=== PATIENT | male | born 1960 | race Caucasian/White ===

== ENCOUNTER 2018-03-31 22:33 | Observation (INO) | payer OTHER, SELFPAY ==
[2018-03-31 22:34] VITALS: BP 195/111; PULSE 68; RESP 15; TEMP 36.6; O2SAT 98; BMI 25.7
[2018-03-31 22:39] VITALS: PULSE 59; RESP 22; O2SAT 95
[2018-03-31] MEDS: Aspirin 81 MG TAB.CHEW 324 MG PO (23:02)
[2018-03-31] MEDS: 0.9% Normal Saline 1,000 ML 150 ML IV (23:02)
[2018-03-31 23:17] LABS: Anion Gap 7 (5-15); BUN 14 mg/dL (7-18); BUN/Creat Ratio 11.6 RATIO (10-20); Calcium,Total 9.8 mg/dL (8.5-10.1); Chloride 103 mmol/L (98-107); Creatinine, Serum 1.21 mg/dL (0.70-1.30); EST Glomerular Filtration Rate 65 mL/min (>60); Est Glom Filt Rate - Afr Amer 79 mL/min (>60); Estimated Creatinine Clearance 73.04 ml/min; Glucose 105 mg/dL (74-106); Potassium 3.8 mmol/L (3.5-5.1); Sodium Level 139 mmol/L (136-145)
[2018-03-31 23:19] LABS: D-Dimer Quantitative (DVT/PE) < 0.27 FEU/ug/m (0.27-0.49)
[2018-03-31 23:20] LABS: Absolute Lymphocyte Count 2.04 X10^3/ul (0.83-4.51); Absolute Neutrophil Count 2.7 X10^3/uL (2.0-7.7); Basophil# 0.07 X10^3/uL; Basophil% 1.2 % (0-1); Eosinophil# 0.13 X10^3/uL; Eosinophils% 2.3 % (0-5); Hematocrit 45.2 % (40-54); Lymphocyte # 2.04 X10^3/ul (4.0); Mean Corp Hgb Conc 33.2 g/gl (32-36); Mean Corpuscular Hgb 31.8 pg (27.0-32.0); Mean Corpuscular Volume 95.8 fL (80-94); Mean Platelet Vol. 10.1 fl (6.2-12.0); Monocyte% 12.3 % (0-10); Neutrophil # 2.73 X10^3/uL (2.7-7.7); Neutrophil % 48.2 % (47-70); Platelet Count 227 K/mm3 (150-450); RBC Distribution Width SD 51.5 fl (35.1-43.9); Red Blood Count 4.72 M/mm3 (4.6-6.2); White Blood Count 5.7 K/mm3 (4.4-11.0)
[2018-03-31 23:21] LABS: POSITIVE COUNT NO; POSITIVE DIFFERENTIAL NO; POSITIVE MORPHOLOGY NO
[2018-03-31 23:23] VITALS: BP 146/76; PULSE 69; RESP 18; O2SAT 96
--- NOTE | 2018-03-31 23:38 | ED.VISSUMM ---
- ER Visit Summary Date of Service: 03/31/18 Chief Complaint: Chest pain History of Present Illness: The patient is a 57 M reports onset of left lower chest pain around 6 PM this evening. He describes a throbbing like sensation. He does report nausea and diaphoresis. He states he is short of breath but no worse than normal. History significant for COPD, reflux disease, back pain. Patient denies prior cardiac evaluation. His father had bypass surgery when he was in his 70s. No DVT risk factors. Physical Examination: Vital signs include a blood pressure of 195/111 on arrival, otherwise normal. Patient sitting upright in bed no acute distress. Head neck examination is unremarkable. Heart is regular rate and rhythm. Lung sounds are clear other than mild expiratory wheeze in the left base. There is no chest wall tenderness. Abdomen is soft nontender. Lower external examination was no calf tenderness or edema. Test Results: EKG is sinus at 61 with no sign of acute ischemia. Portable chest x-ray unremarkable. CBC and chemistry studies are normal. Troponin is negative. D-dimer is negative. Emergency Department Course and Treatment: Patient was given aspirin on arrival. He rates his pain as a 1 out of 10 and did not want anything further for pain. On repeat evaluation blood pressure is 159/88 with a heart rate of 73. Patient continues to write only very minimal pain at this time. I recommended hospitalization for cycling of cardiac enzymes and potential stress test. Hospitalist is on page at this time. Treatment Plan: [] Disposition: Admit to observation Impression: Chest pain This note was generated with [employer] dictation software. It may contain incorrect words, spelling, and punctuation that were not noted in review of the chart prior to signing ED Disposition - Plan for ED Patient: Chief Complaint: Chest Pain Referrals: Israel Reed MD [Primary Care Provider] -
--- NOTE | 2018-03-31 23:41 | ED.DCSUM_ITS ---
- ER Visit Summary Date of Service: 03/31/18 Chief Complaint: Chest pain History of Present Illness: The patient is a 57 M reports onset of left lower chest pain around 6 PM this evening. He describes a throbbing like sensation. He does report nausea and diaphoresis. He states he is short of breath but no worse than normal. History significant for COPD, reflux disease, back pain. Patient denies prior cardiac evaluation. His father had bypass surgery when he was in his 70s. No DVT risk factors. Physical Examination: Vital signs include a blood pressure of 195/111 on arrival , otherwise normal. Patient sitting upright in bed no acute distress. Head neck examination is unremarkable. Heart is regular rate and rhythm. Lung sounds are clear other than mild expiratory wheeze in the left base. There is no chest wall tenderness. Abdomen is soft nontender. Lower external examination was no calf tenderness or edema. Test Results: EKG is sinus at 61 with no sign of acute ischemia. Portable chest x-ray unremarkable. CBC and chemistry studies are normal. Troponin is negative. D-dimer is negative. Emergency Department Course and Treatment: Patient was given aspirin on arrival. He rates his pain as a 1 out of 10 and did not want anything further for pain. On repeat evaluation blood pressure is 159/88 with a heart rate of 73. Patient continues to write only very minimal pain at this time. I recommended hospitalization for cycling of cardiac enzymes and potential stress test. Hospitalist is on page at this time. Treatment Plan: [] Disposition: Admit to observation Impression: Chest pain This note was generated with [employer] dictation software. It may contain incorrect words, spelling, and punctuation that were not noted in review of the chart prior to signing ED Disposition - Plan for ED Patient: Chief Complaint: Chest Pain Referrals: Israel Reed MD [Primary Care Provider] -
--- NOTE | 2018-03-31 23:43 | PCM.HP.STD ---
Problem List (1) Chest pain Status: Acute Qualifiers: Chest pain type: unspecified Qualified Code(s): R07.9 - Chest pain, unspecified (2) Elevated BP without diagnosis of hypertension Status: Acute (3) Chronic obstructive pulmonary disease (COPD) Status: Chronic Qualifiers: COPD type: unspecified COPD Qualified Code(s): J44.9 - Chronic obstructive pulmonary disease, unspecified (4) GERD (gastroesophageal reflux disease) Status: Chronic Qualifiers: Esophagitis presence: esophagitis presence not specified Qualified Code(s): K21.9 - Gastro-esophageal reflux disease without esophagitis (5) Chronic back pain Status: Chronic Qualifiers: Back pain location: back pain in unspecified location Back pain laterality: unspecified Qualified Code(s): M54.9 - Dorsalgia, unspecified; G89.29 - Other chronic pain (6) Tobacco use Status: Chronic (7) Alcohol abuse Status: Chronic (8) Insomnia Status: Chronic Qualifiers: Insomnia type: unspecified Qualified Code(s): G47.00 - Insomnia, unspecified History of Present Illness Date of Admission: 03/31/18 Chief Complaint: Chest pain The patient is a 57 y/o M w/ PMHx: Suspected Chronic COPD, Tobacco use, Prior Chronic back pain, GERD who presents to the [facility] ED on 03/31/18 with history of recent increased malaise and fatigue over the last several days with emesis x 1 the evening prior at work with onset on day of ED presentation while at work, throbbing, 5-7/10, left sided chest discomfort with associated chest tightness, dyspnea sensation with diaphoresis and concurrent nausea, noted to be intermittent. Improved upon ED presentation, noted 08/13. He and his notes that he has been having more shortness of breath with exertion and occasional wheezing, using her inhaler occasionally. 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 He notes recently seeing his new physician and following discussions notes intention to review all of these issues at follow-up. In the ED work-up included T 98, heart rate 68, BP initially 195/111--> 146/76, respiratory rate 15, 98% on room air, CBC with WBC 5.7, hemoglobin 15, platelet 227, negative d-dimer, unremarkable BMP, troponin less than 0.015, chest x-ray with chronic changes, EKG with sinus rhythm with no acute evidence of ischemia. In the ED patient administered normal saline, aspirin therapy. Past Medical History Past Medical History (Chronic Problems): Chronic Problems Chronic obstructive pulmonary disease (COPD) (Chronic) GERD (gastroesophageal reflux disease) (Chronic) Chronic back pain (Chronic) Tobacco use (Chronic) Alcohol abuse (Chronic) Insomnia (Chronic) Allergies No Known Allergies Allergy (Verified 03/31/18 22:35) Home Medications: Ambulatory Orders Medication Instructions Recorded NK [NK] 03/31/18 Surgical History: - - Lumbar back surgery. Psychiatric History: No pertinent psych hx Lives: Spouse/ Significant Other Smoking Status: Current every day smoker - Continued cigarette tobacco usage one pack per day Tobacco Use: Cigarettes Alcohol: Heavy - Notes the equivalent of 4-5 shots of Tequila daily. Drugs: None - *Family History Maternal History Items: Cancer - Maternal family history of bladder cancer. Paternal History Items: Heart Disease - Paternal family history of heart disease including coronary disease status post CABG in his 60s. Review of Systems Constitutional: Reports: Malaise, Weakness, Fatigue. Denies: Chills, Fever, Weight Change HEENT: Denies: Head Aches, Sinus Congestion, Sinus Drainage Cardiovascular: Reports: Chest Pain, Chest Tightness, Heaviness. Denies: Light Headedness, Orthopnea, Palpitations, Syncope Respiratory: Reports: Cough, Shortness of Breath, Shortness of breath at rest, Shortness of breath upon exertion, Wheezing. Denies: Sputum production Gastrointestinal: Reports: Nausea, Vomiting. Denies: Abdominal Pain Genitourinary: Denies: Dysuria Musculoskeletal: Reports: Back Pain. Denies: Joint Pain, Joint Tenderness Skin: Denies: Rash, Wounds Neurological: Denies: Numbness, Tingling, Focal weakness Psychiatric: Reports: - - Insomnia.. Denies: Anxiety, Depression, Homicidal Ideations, Suicidal Ideations Hematologic/ Lymphatic: Denies: Easy Bruising, Easy Bleeding VTE Information - Inpt Only VTE Present on Admission: No VTE Mechan Device Prophylaxis: SCD's VTE Pharm Prophylaxis ordered?: Yes Patient Problems: Active and Suspected Problems Chest pain (Acute) Elevated BP without diagnosis of hypertension (Acute) Subjective: Seated upright in the ED bed, no acute distress currently, denies any severe chest discomfort at this time. Objective: Physical Examination: General: awake, alert, oriented x 3 and cooperative, seated upright in the ED bed in no apparent distress, fatigued appearance. Skin: normal color, turgor, no icterus, cyanosis. HEENT: AT/NC, EOMI, PERRLA, MMM, no carotid bruits or JVD noted. Lungs: Severe diminished BL, > bases, expiratory wheezing, moderate effort, no rales or ronchi. Heart: Regular rate and rhythm; no gallop, rub audible. Abdomen: soft, NTTP, ND, normal BS, no HSM. Extremities: no cyanosis, clubbing, or edema. Neurological: patient awake, alert, oriented x 3; cognitive function intact; pupils equally reactive to light and accomodation; cranial nerves II-XII grossly normal, moving all 4 extremities, no focal deficits, strength mildly globally decreased. Psychiatric: affect appears normal, no acute evidence of depressive or anxiety feelings. - Physical Exam Vital Signs Temp Pulse Resp BP Pulse Ox 98 F 69 18 146/76 H 96 03/31/18 22:34 03/31/18 23:23 03/31/18 23:23 03/31/18 23:23 03/31/18 23:23 Oxygen Flow Rate (L/min) 2 Oxygen Delivery Method Nasal Cannula Weight: 190 lb Body Mass Index (BMI) 25.7 Laboratory Tests Past 24 Hrs 03/31/18 03/31/18 03/31/18 22:35 22:35 22:35 WBC 5.7 RBC 4.72 Hgb 15.0 Hct 45.2 MCV 95.8 H MCH 31.8 MCHC 33.2 RDW 15.0 H RDW Differential 51.5 H Plt Count 227 MPV 10.1 Immature Gran % (Auto) 0.000 Neut % (Auto) 48.2 Lymph % (Auto) 36.0 [place] % (Auto) 12.3 H Eos % (Auto) 2.3 Baso % (Auto) 1.2 H Absolute Neuts (auto) 2.7 Absolute Lymphs (auto) 2.04 Total Counted Not Reportable D-Dimer Quant (PE/DVT) < 0.27 L Sodium 139 Potassium 3.8 Chloride 103 Carbon Dioxide 29.0 Anion Gap 7 BUN 14 Creatinine 1.21 Estim Creat Clear Calc 73.04 Est GFR (MDRD) Af Amer 79 Est GFR (MDRD) Non-Af 65 BUN/Creatinine Ratio 11.6 Glucose 105 Calcium 9.8 Troponin I < 0.015 Assessment/Plan All Active Problems Chest pain (Acute) Elevated BP without diagnosis of hypertension (Acute) The patient is a 57 y/o M w/ PMHx: Suspected Chronic COPD, Tobacco use, Prior Chronic back pain, GERD who presents to the [facility] ED on 03/31/18 with history of recent increased malaise and fatigue over the last several days with emesis x 1 the evening prior at work with onset on day of ED presentation while at work, throbbing, 5-7/10, left sided chest discomfort with associated chest tightness, dyspnea sensation with diaphoresis and concurrent nausea, noted to be intermittent. (1) Chest Pain: EKG in ED sinus rhythm with no acute evidence of ischemia, CXR w/ chronic changes, initial trop normal ?1. Will admit to PCU, place on a monitored bed to assure no acute myocardial infarction with serial cardiac enzymes and EKGs. Patient is unable to perform exercise thus will proceed with AM nuclear stress testing. ASA, NG, morphine. FLP in AM w/ statin added in interim. Mag pending. (2) Elevated BP without HTN diagnosis. ? HTN Urgency: Notable elevation upon ED presentation, possibly contributing to #1, HTN urgency, unclear if prolonged history as patient has not been frequently to see his PCP, newly established now, will add low dose ACEI, defer BB given concurrent COPD with ongoing tobacco use, PRN hydralazine. (3) Suspected Chronic COPD: Notes recent PCP evaluation with suggested likely underlying pulmonary disease. Encouraged continued evaluation including PFTs and initiation of appropriate inhalers. Encouraged tobacco cessation. ATC duonebs, PRN albuterol, HOB, IS parameters. Given dyspnea with exertion and notable pulmonary examination per discussion with patient will pursue chemical stress testing as noted above. (4) EtOH Abuse: Patient notes routine consumption of the equivalent of 4-5 shots tequila per day. Will maintain on CIWA protocol, MVI, thiamine and folic acid. Strongly encouraged reduction EtOH intake or sobriety, although current intake from discussions purely for assist with sleep. Appropriate sleep hygiene discussed and the actually effects of EtOH intake on sleep. (5) Insomnia: Likely secondary to the very irregular shift structure including swings and nights. Recommended several sleep hygiene changes, avoidance of heavy EtOH, will trial low dose trazodone upon admission. (6) Tobacco Abuse: Encouraged cessation, inpatient consultation per RT, NR if desired. (7) Chronic Back Pain: Improved following lumbar surgery prior. Encourage frequent position changes, PRN tylenol. (8) GERD: Famotidine. (9) DVT Prophylaxis: SCDs, lovenox. Code Visit OBSV E&M: 16209 Initial observation care L3
[2018-03-31 23:50] VITALS: BP 168/91; PULSE 63; RESP 17; O2SAT 96
[2018-04-01] VITALS (12 sets, daily range): BP systolic 133–164; BP diastolic 77–97; PULSE 59–89; RESP 15–18; TEMP 36.9–37; O2SAT 92–96; BMI 26.1
--- NOTE | 2018-04-01 00:09 | NURSING ---
Called [facility] charge [facility] to send patient to the floor.
[2018-04-01] MEDS: 0.9% Normal Saline 1,000 ML 100 ML IV (00:33)
[2018-04-01 00:43] LABS: Magnesium 1.9 mg/dL (1.6-2.6); Phosphorus 3.6 mg/dL (2.5-4.9)
[2018-04-01] MEDS: Mag Hydrox/Al Hydrox/Simeth 30 ML UDC PO (00:51)
[2018-04-01] MEDS: Famotidine 20 MG Tablet PO ×2 (00:52→11:31)
[2018-04-01] MEDS: traZODone 50 MG Tablet PO ×2 (00:52→01:27)
[2018-04-01] MEDS: Lisinopril 10 MG Tablet PO ×2 (00:53→06:05)
[2018-04-01] MEDS: Ipratropium/Albuterol Sulfate 3 ML AMPUL.NEB INHALATION ×3 (01:40→13:03)
[2018-04-01 02:24] LABS: Hematocrit 43.4 % (40-54); Hemoglobin 14.3 g/dl (13.0-16.5); Mean Corp Hgb Conc 32.9 g/gl (32-36); Mean Corpuscular Hgb 31.4 pg (27.0-32.0); Mean Corpuscular Volume 95.4 fL (80-94); Mean Platelet Vol. 9.8 fl (6.2-12.0); Platelet Count 214 K/mm3 (150-450); RBC Distribution Width SD 51.2 fl (35.1-43.9); Red Blood Count 4.55 M/mm3 (4.6-6.2); White Blood Count 5.4 K/mm3 (4.4-11.0)
[2018-04-01 02:25] LABS: Scan Indicated on CBC? Y/N NO
[2018-04-01 02:28] LABS: International Normalized Ratio 0.9; Prothrombin Time (Protime)PT. 12.3 SECONDS (11.7-14.9)
[2018-04-01 02:29] LABS: Partial Thromboplast Time 26.4 Seconds (24.1-36.2)
[2018-04-01 02:41] LABS: ALB/GLOB Ratio 1.1 RATIO (0.9-2.4); AST(SGOT) 31 U/L (15-37); Alanine Aminotransfer ALT/SGPT 36 U/L (16-61); Albumin, Serum 3.7 g/dL (3.2-5.0); Alkaline Phosphatase 69 U/L (45-117); Anion Gap 9 (5-15); BUN 13 mg/dL (7-18); BUN/Creat Ratio 11.7 RATIO (10-20); Calcium,Total 9.7 mg/dL (8.5-10.1); Chloride 104 mmol/L (98-107); Cholesterol 159 mg/dL (200); Creatinine, Serum 1.11 mg/dL (0.70-1.30); EST Glomerular Filtration Rate 72 mL/min (>60); Est Glom Filt Rate - Afr Amer 87 mL/min (>60); Estimated Creatinine Clearance 79.62 ml/min; Globulin 3.4 g/dL (2.2-4.2); Glucose 103 mg/dL (74-106); High Density Lipoprotein 66 mg/dL; Potassium 3.5 mmol/L (3.5-5.1); Protein, Total 7.1 g/dL (6.4-8.2); Sodium Level 140 mmol/L (136-145); Triglycerides 162 mg/dL; Very Low Density Lipoprotein 32 mg/dL (5-40)
[2018-04-01] MEDS: Aspirin E.C. 81 MG Tablet PO (06:05)
[2018-04-01] MEDS: Thiamine Hydrochloride 100 MG Tablet PO (11:31)
[2018-04-01] MEDS: Folic Acid 1 MG Tablet PO (11:31)
[2018-04-01] MEDS: Multivitamins,Ther W-Minerals Tablet 1 TABLET PO (11:31)
--- NOTE | 2018-04-01 13:08 | STRESSREP ---
Stress Test Report Exercise myocardial perfusion stress test. 57-year-old male with a history of chest pain. Medications: Aspirin, Lipitor, Pepcid,. Stress protocol: Resting EKG demonstrates sinus bradycardia with a rate of 60 bpm normal intervals and noted resting blood pressure 730/70 mmHg. The patient exercised according to the regular Stevan protocol for total duration of 9 minutes. The maximum heart rate attained was 141 bpm which was 87% of maximum predicted heart rate. The maximum heart rate attained was 141 bpm which was 87% of maximum predicted heart rate the maximum workload was 10.1 metabolic equivalents. At rest there were no ST or T-wave changes noted suggest ischemia at peak exercise upsloping ST changes only were noted which were not suggestive of ischemia. The test was terminated due to leg fatigue. The resting blood pressure is 130/70 with a peak blood pressure 200/82 mmHg. Myocardial perfusion protocol. 11.8 mCi of technetium 99m sestamibi was injected at rest. The patient exercised according to regular Stevan protocol for 9 minutes and at peak exercise 34.6 mCi of technetium 99m sestamibi was injected stress images were obtained stress and rest images were reconstructed and compared in the short axis vertical long and horizontal long axis. Gated images were also obtained. Perfusion SPECT analysis: Review of the stress images demonstrate normal uptake of tracer noted in all areas of the myocardium. The resting images similarly demonstrate normal uptake of tracer noted in all areas of the myocardium. No areas of reversibility are noted suggest ischemia no previous infarct is noted. Gated SPECT analysis: The gated ejection fraction is 66%. Conclusion: Normal exercise myocardial perfusion stress test at a high workload. Preserved ejection fraction. Excellent functional aerobic capacity.
--- NOTE | 2018-04-01 14:43 | PCM.DC ---
- Discharge Diagnoses Current Active Problems: Current Active and Chronic Problems Chest pain (Acute) Chronic obstructive pulmonary disease (COPD) (Chronic) GERD (gastroesophageal reflux disease) (Chronic) Chronic back pain (Chronic) Elevated BP without diagnosis of hypertension (Acute) Tobacco use (Chronic) Alcohol abuse (Chronic) Insomnia (Chronic) You will use the following diet at home:: Cardiac - <2 grams sodium daily Your food should be the consistency of: Regular Your liquids should be the consistency of: Regular/Thin Discharge Activity: Return to Normal Activity, - - Discontinue alcohol use for sleep, reduce or discontinue smoking. Please measure her blood pressure daily in the morning, record the results presented to your PCP at follow-up. Allergies/Adverse Reactions: Allergies No Known Allergies Allergy (Verified 03/31/18 22:35) Medications to take at Discharge Albuterol IH (ProAir) [Proair Hfa] 1 puff INHALATION Q6H PRN PRN #1 inhaler 04/01/18 Lisinopril [Zestril] 10 mg PO DAILY #30 tab 04/01/18 The following prescriptions were given: Albuterol IH (ProAir) [Proair Hfa] 1 puff INHALATION Q6H PRN PRN #1 inhaler PRN Reason: Sob &/Or Wheezing Lisinopril [Zestril] 10 mg PO DAILY #30 tab Primary Care Physician: Israel Reed MD [Primary Care Provider] - Please follow up with your Primary Care Physician in: 1 week Test Results: Test results from this visit will be discussed in further detail at your follow-up appointment, if applicable. Proposed Discharge Date: 04/01/18
--- NOTE | 2018-04-01 14:45 | PCM.DC.SUM ---
<Andre Lyons - Last Filed: 04/01/18 14:45> Discharge Date and Diagnosis - Problem List Patient Problems: Active and Suspected Problems Chest pain (Acute) Elevated BP without diagnosis of hypertension (Acute) Date of Admission: 03/31/18 Date of Discharge: 04/01/18 - Primary Discharge Diagnosis Active and Suspected Problems Chest pain, musculoskeletal GERD HTN, poorly controlled Insomnia Alcohol abuse Nicotine abuse - Secondary Discharge Diagnosis Chronic Problems Chronic obstructive pulmonary disease (COPD) (Chronic) GERD (gastroesophageal reflux disease) (Chronic) Chronic back pain (Chronic) Tobacco use (Chronic) Alcohol abuse (Chronic) Insomnia (Chronic) Hospital Course and Treatment Imaging Results: RAD/Chest 1 View (Portable) IMPRESSION: Normal x-ray examination of the chest. Stress Test: Conclusion: Normal exercise myocardial perfusion stress test at a high workload. Preserved ejection fraction. Excellent functional aerobic capacity. 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 In the ER troponin was negative, EKG negative, negative D Dimer, CXR negative. He was admitted for CP workup to PCU on tele. He underwent stress test the following morning which was negative. Repeat EKG and tele negative. Troponin neg x 3. LDL 61. He had severely elevated BP (195/111) at admission and was started on lisinopril. I advised him to follow up with his PCP in one week and check his BP daily and provide this to his PCP until then. He was provided with an albuterol inhaler for DC as he reported being told he had early emphysema and had been using his wifes inhaler. I advised him to DC alcohol and tobacco. His chest pain was felt to be musculoskeletal as cardiac etiology was ruled out. He was discharged home in stable condition. This patient was seen by Andre Lyons PA-C under the supervision of Doctor Denita. [] Discharge Diet: Low fat/ Low Cholesterol, 2000 mg Sodium Diet Discharge Activity: Return to Normal Activity, - - Discontinue alcohol use for sleep, reduce or discontinue smoking. Please measure her blood pressure daily in the morning, record the results presented to your PCP at follow-up. Home Medications: Medications to take at Discharge Albuterol IH (ProAir) [Proair Hfa] 1 puff INHALATION Q6H PRN PRN #1 inhaler 04/01/18 Lisinopril [Zestril] 10 mg PO DAILY #30 tab 04/01/18 Following Prescrptions Were Given to Patient: Albuterol IH (ProAir) [Proair Hfa] 1 puff INHALATION Q6H PRN PRN #1 inhaler PRN Reason: Sob &/Or Wheezing Lisinopril [Zestril] 10 mg PO DAILY #30 tab Primary Care Physician: Israel Reed MD [Primary Care Provider] - Please follow up with your Primary Care Physician in: 1 week Disposition: Home Minutes spent on discharge:: 40 Patient Condition:: Stable Medical Necessity - Tobacco Use Smoking Status: Current every day smoker Tobacco Use: Cigarettes Meaningful Use Info Meaningful Use Diagnoses (Choose all that apply): None applicable <Opal Barger - Last Filed: 04/01/18 15:45> Discharge Date and Diagnosis - Primary Discharge Diagnosis Active and Suspected Problems Chest pain (Acute) Elevated BP without diagnosis of hypertension (Acute) - Secondary Discharge Diagnosis Chronic Problems Chronic obstructive pulmonary disease (COPD) (Chronic) GERD (gastroesophageal reflux disease) (Chronic) Chronic back pain (Chronic) Tobacco use (Chronic) Alcohol abuse (Chronic) Insomnia (Chronic) Hospital Course and Treatment Summary of Care Provided: Patient seen by Andre Lyons PA-C under my supervision. Patient is a 57 y/o male with a PMH as documented above. He was admitted with a complaint of left-sided chest pain with associated shortness of breath, diaphoresis or nausea. EKG done was negative for any acute ST changes and troponins ?3 was also negative. D-dimer was negative and chest x-ray showed no acute cardiopulmonary process. Stress test was done this morning which was negative and showed normal exercise. Myocardial perfusion stress test at a high workload with preserved ejection fraction and excellent functional aerobic capacity. Blood pressure was severely elevated at 195/111 on admission. He doesnt have a previous history of hypertension diagnosis. He was started on lisinopril 10 mg daily. Was counseled to follow-up with his primary care doctor in 1 week and his blood pressure daily and presented to his primary care doctor. Patient seen and examined today prior to discharge. He had no complaints. Chest pain had resolved. He denied any fever or chills, cough or chest pain, SOB, abdominal pain, diarrhea or vomiting. Review of systems was otherwise negative. o/e: Vital Signs Height 6 ft Weight: 192 lb 10.944 oz Weight in Pounds 192.7 lbs Pulse Ox 93 Temperature 98.5 F Pulse Rate 75 Respiratory Rate 16 Blood Pressure [2nd BP] 160/91 Blood Pressure 133/79 Blood Pressure Position [2nd Semi-Fowlers BP] Blood Pressure Position Semi-Fowlers General: awake, alert, oriented x 3 and cooperative Skin: normal color, turgor, no icterus, cyanosis. HEENT:EOMI, PERRLA, no carotid bruits or JVD noted. Lungs: lungs clear to auscultation. no wheezes or rhonchi. Heart: Regular rate and rhythm; no murmurs. Abdomen: soft, non tender, no organomegaly. normal bowel sounds. Extremities: no cyanosis, clubbing, or edema. Neurological: patient awake, alert, oriented x 3; cognitive function intact; cranial nerves II-XII grossly normal, moving all 4 extremities, no focal deficits, Psychiatric: affect appears normal, Plan as stated above. LDL was 61. He was given a script for lisinopril 10mg daily. He is to follow up with his PCP in one week. Agree with rest of Andre Lyons PA-C's note. [] Code Visit Inpatient E&M: 10834 Disch Hosp
== END 2018-04-01 14:43 | disposition home or self-care (01) ==
LOC: ED 22:48 → PCU 04-01 00:08
PROVIDERS: Admitting Provider Family Medicine; Emergency Provider Emergency Medicine; Family Provider Family Medicine; PCP Family Medicine; Visit Provider Student in an Organized Health Care Education/Training Program
DX: R07.89 Other chest pain (principal); J44.9 Chronic obstructive pulmonary disease, unspecified; K21.9 Gastro-esophageal reflux disease without esophagitis; R11.0 Nausea; R06.02 Shortness of breath; G47.00 Insomnia, unspecified; F17.210 Nicotine dependence, cigarettes, uncomplicated; F10.10 Alcohol abuse, uncomplicated; I10 Essential (primary) hypertension
CPT/HCPCS: 36415; 71045; 78452; 80048; 80053; 80061; 83735; 84100; 84484; 85025; 85027; 85379; 85610; 85730; 93005; 93017; 94640; 96360; 96361; 99218; 99283; 99406; A9500; J7030; A4216; G0378; J2785

== ENCOUNTER → 2018-05-21 11:26 | Outpatient (CLI) | payer OTHER, SELFPAY ==
[2018-05-21 14:34] LABS: Cholesterol 178 mg/dL (200); Glucose 86 mg/dL (74-106); High Density Lipoprotein 62 mg/dL; Triglycerides 384 mg/dL; Very Low Density Lipoprotein 77 mg/dL (5-40)
== END ==
PROVIDERS: Family Provider Family Medicine; PCP Family Medicine; Visit Provider Family Medicine
DX: Z00.00 Encounter for general adult medical examination without abnormal findings (principal)
CPT/HCPCS: 36415; 80061; 82947

== ENCOUNTER → 2019-06-10 | Outpatient (CLI) | payer OTHER, SELFPAY ==
[2018-04-01 00:43] VITALS: BMI 26.1
[2019-06-10 10:41] LABS: Absolute Lymphocyte Count 1.69 X10^3/uL (0.83-4.51); Absolute Neutrophil Count 1.7 X10^3/uL (2.0-7.7); Basophil# 0.11 X10^3/uL; Basophil% 2.7 % (0-1); Eosinophil# 0.07 X10^3/uL; Eosinophils% 1.7 % (0-5); Hematocrit 34.4 % (40-54); Lymphocyte # 1.69 X10^3/ul (4.0); Lymphocyte % 41.3 % (19-41); Mean Platelet Vol. 10.1 fl (6.2-12.0); Monocyte% 9.8 % (0-10); NRBC Flagged by Analyzer 0 % (0-5); Neutrophil # 1.72 X10^3/uL (2.7-7.7); Neutrophil % 42.1 % (47-70); Platelet Count 288 K/mm3 (150-450); RBC Distribution Width CV 14.4 % (11.6-14.6); Red Blood Count 3.44 M/mm3 (4.6-6.2); White Blood Count 4.1 K/mm3 (4.4-11.0)
[2019-06-10 11:10] LABS: AST(SGOT) 24 U/L (15-37); Alanine Aminotransfer ALT/SGPT 31 U/L (16-61); Albumin, Serum 3.8 g/dL (3.2-5.0); Alkaline Phosphatase 66 U/L (45-117); Anion Gap 8 (5-15); BUN 20 mg/dL (7-18); BUN/Creat Ratio 13.1 RATIO (10-20); CRP 6.24 mg/L (0.0-3.0); Calcium,Total 11.6 mg/dL (8.5-10.1); Chloride 101 mmol/L (98-107); Creatinine, Serum 1.53 mg/dL (0.70-1.30); EST Glomerular Filtration Rate 50 mL/min (>60); Est Glom Filt Rate - Afr Amer 60 mL/min (>60); Glucose 85 mg/dL (74-106); Potassium 4.1 mmol/L (3.5-5.1); Protein, Total 7.8 g/dL (6.4-8.2); Sodium Level 140 mmol/L (136-145); Uric Acid 10.7 mg/dL (3.5-7.2)
== END | disposition home or self-care (01) ==
LOC: MFPLAB 09:18
PROVIDERS: Family Provider Family Medicine; PCP Family Medicine; Referring Provider Family Medicine; Visit Provider Family Medicine
DX: M10.9 Gout, unspecified (principal)
CPT/HCPCS: 36415; 80053; 84550; 85025; 86140

== ENCOUNTER → 2019-09-10 | Outpatient (CLI) | payer OTHER, SELFPAY ==
[2018-04-01 00:43] VITALS: BMI 26.1
[2019-09-10 10:27] LABS: Absolute Lymphocyte Count 1.85 X10^3/uL (0.83-4.51); Basophil# 0.14 X10^3/uL; Eosinophil# 0.12 X10^3/uL; Eosinophils% 2.6 % (0-5); Hematocrit 36.7 % (40-54); Hemoglobin 11.7 g/dL (13.0-16.5); Lymphocyte # 1.85 X10^3/ul (4.0); Mean Corp Hgb Conc 31.9 g/dL (32-36); Mean Corpuscular Hgb 29.7 pg (27.0-32.0); Mean Corpuscular Volume 93.1 fL (80-94); Monocyte# 0.48 X10^3/uL; Monocyte% 10.4 % (0-10); NRBC Flagged by Analyzer 0 % (0-5); Neutrophil # 1.95 X10^3/uL (2.7-7.7); Neutrophil % 42.3 % (47-70); Platelet Count 227 K/mm3 (150-450); RBC Distribution Width CV 14.6 % (11.6-14.6); RBC Distribution Width SD 48.4 fl (35.1-43.9); Red Blood Count 3.94 M/mm3 (4.6-6.2); White Blood Count 4.6 K/mm3 (4.4-11.0)
[2019-09-10 10:45] LABS: ALB/GLOB Ratio 1.1 RATIO (0.9-2.4); AST(SGOT) 20 U/L (15-37); Alanine Aminotransfer ALT/SGPT 38 U/L (16-61); Albumin, Serum 4.1 g/dL (3.2-5.0); Alkaline Phosphatase 57 U/L (45-117); Anion Gap 4 (5-15); BUN 20 mg/dL (7-18); BUN/Creat Ratio 13.1 RATIO (10-20); Calcium,Total 9.8 mg/dL (8.5-10.1); Chloride 103 mmol/L (98-107); Cholesterol 195 mg/dL (200); Creatinine, Serum 1.53 mg/dL (0.70-1.30); EST Glomerular Filtration Rate 50 mL/min (>60); Est Glom Filt Rate - Afr Amer 60 mL/min (>60); Globulin 3.9 g/dL (2.2-4.2); Glucose 94 mg/dL (74-106); High Density Lipoprotein 48 mg/dL; Sodium Level 137 mmol/L (136-145); Triglycerides 190 mg/dL; Uric Acid 9.8 mg/dL (3.5-7.2); Very Low Density Lipoprotein 38 mg/dL (5-40)
[2019-09-10 10:53] LABS: Microalbumin,Random Urine < 5.0 mg/L (NO RANGE EST.)
== END | disposition home or self-care (01) ==
LOC: MTLAB 09:03
PROVIDERS: PCP Family Medicine; Referring Provider Family Medicine; Visit Provider Family Medicine
DX: Z00.00 Encounter for general adult medical examination without abnormal findings (principal); I10 Essential (primary) hypertension; J44.9 Chronic obstructive pulmonary disease, unspecified; M10.9 Gout, unspecified
CPT/HCPCS: 36415; 80053; 80061; 82043; 82570; 84550; 85025

== ENCOUNTER → 2019-12-21 15:24 | Outpatient (CLI) | payer OTHER, SELFPAY ==
[2018-04-01 00:43] VITALS: BMI 26.1
[2019-12-21 17:10] LABS: Bacteria 0 SEEN /hpf (None Seen); Red Blood Cells-Urine 0 SEEN /hpf (0-5); Squamous Epithelial Cells - UA 0 SEEN /hpf (0-5); White Blood Cells 0 SEEN /hpf (0-5)
[2019-12-21 17:20] LABS: Color, Urine Yellow (Yellow); Glucose, Dipstick Normal (Normal); Ketone-Dipstick Negative (Negative); Leukocyte Esterase-Dipstick Negative /ul (Negative); Nitrite-Dipstick Negative (Negative); Occult Blood-Urine 25 /ul (Negative); Protein-Dipstick Negative (Negative); Specific Gravity, Urine 1.025 (1.002-1.030); Urine Bilirubin Dipstick Negative (Negative); Urine Clarity Clear (Clear); Urine Urobilinogen Normal (Normal)
[2019-12-21 17:31] LABS: Mucous, Urine 1+ /hpf (<or=2+)
== END ==
PROVIDERS: PCP Family Medicine; Visit Provider Urology
DX: Z12.5 Encounter for screening for malignant neoplasm of prostate (principal); R31.21 Asymptomatic microscopic hematuria
CPT/HCPCS: 36415; 81001; 84153

== ENCOUNTER 2020-03-14 10:51 | Emergency (ER) | payer OTHER, SELFPAY ==
[2020-03-14 10:52] VITALS: BP 151/78; PULSE 79; RESP 18; TEMP 36.3; O2SAT 95; BMI 30.6
--- NOTE | 2020-03-14 11:09 | RAD_ITS ---
STUDY: X-RAY - LUMBAR SPINE REASON FOR EXAM: Male, 59 years old. LOWER BACK PAIN X 2 WKS TECHNIQUE: 3 view(s) of the lumbar spine were obtained. COMPARISON: None FINDINGS: Normal lumbar lordosis. There is no substantial scoliosis. There is a normal alignment of the vertebrae. Approximately 10% loss of height of the superior endplate of the L1 vertebrae. Moderate degree of disc space narrowing and spondylosis at the L5-S1 level. Facet joint osteoarthritis. There is atherosclerotic calcification of the abdominal aorta without a demonstrated aneurysm. RAD/Lumbar Spine 2 or 3 Views IMPRESSION: Degenerative changes of the spine, as detailed above. Loss of height of the superior endplate of the L1 vertebrae. Electronically Signed: Flavio Hatch, at 11:50 EDT , Service support ,
--- NOTE | 2020-03-14 11:10 | ED.VISSUMM ---
- ER Visit Summary Date of Service: 03/14/20 Chief Complaint: [Back pain] History of Present Illness: The patient is a 59 M [presents the emergency department complaint of back pain that started 2 weeks ago. Patient states that the pains been relatively continuous. He denies any trauma to his back. Patient states that he did injure his right ribs and left ribs about a month ago while he accidentally rolled onto his right ribs and arm while working. Patient also states that that he coughed and had discomfort in his left ribs and felt a pop so is not sure if he is just splinting and guarding and maybe that is what has caused the discomfort in his low back. Patient states the pain is positional and worse with certain movements. He denies any loss of bowel or bladder function. He denies any weakness in extremities. He denies any pain rating eating down his legs although if he stands for too long on his right leg he will have some numbness in the right leg. Patient states that he has had remote surgery to his back in 2005 for herniated disc but that seemed to resolve his back issues. Patient denies any fevers. He denies urinary symptoms. Patient has not had any nausea or vomiting.] Physical Examination: [HEENT-PERRLA, EOMI. Cranial nerves II through XII grossly intact. TMs clear. Mucous membranes moist. No adenopathy. Cardiovascular-regular rate and rhythm without murmur or ectopy Lungs-clear to auscultation, chest wall stable without crepitus or subcu emphysema Abdomen-normoactive bowel sounds, soft, nontender, no rebound or rigidity, no peritoneal signs. Back exam-patient has some diffuse tenderness over the lumbar spine and lumbar paraspinal musculature bilaterally. Negative straight leg raises. Deep tendon reflexes are plus 2 out of 4 bilaterally at the patella Achilles. Patient has normal 5 extension. Extremities-intact ?4, normal range of motion, normal pulses, atraumatic] Test Results: [X-rays of lumbar spine obtained and show degenerative changes with loss of height of L1 of about 10%.] Emergency Department Course and Treatment: [Received Valium 5 mg p.o. He refused any narcotic pain medication.] Treatment Plan: [She will be given a prescription for [place] and Valium. Patient referred to orthopedics Dr. Ben Salcedo for follow-up. Patient advised to return if worsening pain, fever, weakness in extremities, change in bowel or bladder function, or condition should worsen anyway.] Disposition: [Discharged home in stable condition] Impression: [Atraumatic back pain] This note was generated with [employer] dictation software. It may contain incorrect words, spelling, and punctuation that were not noted in review of the chart prior to signing ED Disposition - Plan for ED Patient: Referrals: Israel Reed MD [Primary Care Provider] -
[2020-03-14] MEDS: diazePAM 5 MG Tablet PO (11:23)
--- NOTE | 2020-03-14 12:02 | DCINST.ED_ITS ---
ED Disposition - Plan for ED Patient: Instructions: ED Spasm Back No Trauma Prescriptions: Hydrocodone Bitart/Apap 5-325 [[place] 5MG-325MG] 1 tab PO Q4H PRN PRN 2 Days #20 tab PRN Reason: Pain Prescription Printed Diazepam [Valium] 5 mg PO Q8 PRN #10 tab PRN Reason: Muscle Spasm Prescription Printed Referrals: Ben Salcedo DO [STAFF PHYSICIAN] - 3-5 Days
--- NOTE | 2020-03-14 12:04 | DCINST.ED_ITS ---
ED Disposition - Plan for ED Patient: Instructions: ED Spasm Back No Trauma Prescriptions: Hydrocodone Bitart/Apap 5-325 [[place] 5MG-325MG] 1 tab PO Q4H PRN PRN 2 Days #20 tab PRN Reason: Pain Prescription Printed Diazepam [Valium] 5 mg PO Q8 PRN #10 tab PRN Reason: Muscle Spasm Prescription Printed Referrals: Ben Salcedo DO [STAFF PHYSICIAN] - 3-5 Days
== END 2020-03-14 12:16 | disposition home or self-care (01) ==
PROVIDERS: Emergency Provider Emergency Medicine; PCP Family Medicine
DX: M54.9 Dorsalgia, unspecified (principal); I10 Essential (primary) hypertension
CPT/HCPCS: 72100; 99283

== ENCOUNTER 2020-03-31 13:33 | Emergency (ER) | payer OTHER, SELFPAY ==
[2020-03-31 13:34] VITALS: BP 178/91; PULSE 81; RESP 18; TEMP 36.7; O2SAT 97; BMI 30.5
--- NOTE | 2020-03-31 13:52 | MRI_ITS ---
STUDY: MRI LUMBAR SPINE WITH AND WITHOUT CONTRAST REASON FOR EXAM: Male, 59 years old. LBP X 1 MONTH, leg numbness TECHNIQUE: Standardized fat and water weighted pulse sequences were obtained in the sagittal and axial planes. IV DOTAREM 20CC was administered for the contrast portion of the examination. COMPARISON: Plain films March 14 2020 FINDINGS: Lumbar spine is aligned. There is acute stage compression fracture of the superior subchondral region of L1 and inferior L3 with less than 25% loss of height ventrally and dorsally. There is no involvement of the middle column/posterior cortex. Fused marrow is normal with acute and chronic degenerative change. Paraspinous soft tissues and SI joints are intact. Aorta is normal caliber. Conus medullaris terminates at T12-L1. Cauda equina is normal. Thecal sac is moderately compressed at L3-L4 and L4-L5 due to predominantly spondylosis and mild epidural lipomatosis. Thecal sac is surgically decompressed on the right at L5-S1 with remote laminotomy. There is no residual/recurrent disc herniation. Lateral recesses are patent. There are multilevel mild and mild/moderate bilateral foraminal stenoses. MRI/Spine Lumbar W/WO Contrast IMPRESSION: 1. Acute compression fractures of L1 and L3, no canal compression. 2. Chronic spondylotic moderate thecal sac stenosis at L3-L4 and L4-L5. Electronically Signed: Debora Ferrari, at 16:03 EDT Tel , Service support ,
--- NOTE | 2020-03-31 13:57 | ED.VISSUMM ---
- ER Visit Summary Date of Service: 03/31/20 Chief Complaint: Back pain History of Present Illness: The patient is a 59 M who presents with back pain that has been getting worse over the past month. Patient states he had surgery in 2005 for bulging disc. Patient states the pain has been getting worse over the past month. Patient states the pain is sharp. Patient states the pain is worse with standing, breathing, and coughing. Patient states nothing is been helping with the pain. Patient admits to some paresthesias down both lower extremities. Patient states he has been taking analgesics which caused constipation and abdominal pain. Patient denies any radiation of his pain into his abdomen. Patient denies any radiation of his pain to his lower extremities. Patient denies any bowel or bladder changes. Patient denies any saddle anesthesia. Patient states he was at [facility] today for physical therapy. Patient states he was unable to tolerate physical therapy. Patient states they wanted to do an MRI at the orthopedics office today but he was unable to complete the MRI due to claustrophobia. Patient was then referred to the emergency department for an MRI. Physical Examination: Vital signs are stable. Patient is afebrile. Patient is in no acute distress. Musculoskeletal exam reveals tenderness and spasm of the lumbar paraspinal muscles. There is some mild midline tenderness at the L2-L3 level. There is no edema or ecchymosis. There is no bony crepitance or step-off. Range of motion was limited in all motions of the lumbar spine secondary to pain. Strength is 5/5 bilateral in the lower extremities. There are no sensory deficits. Deep tendon reflexes are 2+/4 bilaterally in the patella and Achilles reflexes. Patient was able to ambulate without difficulty. Test Results: MRI of the lumbar spine was obtained. There are acute compression fractures of L1 and L3. There is moderate thecal sac stenosis at L3-L4 and L4-L5. These were interpreted by the radiologist and reviewed by myself. Emergency Department Course and Treatment: Patient was given a dose of morphine and Ativan prior to MRI. Patient is feeling better on reevaluation. Patient has prescriptions for pain medication and muscle relaxants at home. Patient was instructed to continue these. Patient states he has an appoint with Dr. Matute from [facility] this week. Patient was instructed to follow-up as scheduled. Patient understood and was agreeable with the plan. All questions were answered. Disposition: Discharge home Impression: 1. Lumbar disc disease This note was generated with [employer] dictation software. It may contain incorrect words, spelling, and punctuation that were not noted in review of the chart prior to signing ED Disposition - Plan for ED Patient: Disposition: Home or Assisted Living Diagnosis: Lumbar disc disease Instructions: ED Back Pain Acute or Chronic Referrals: Israel Reed MD [Primary Care Provider] - Ben Salcedo DO [STAFF PHYSICIAN] - Keep Wolfgang appointment
[2020-03-31] MEDS: Morphine 2 MG/ML Syringe IV (14:25)
[2020-03-31] MEDS: LORazepam 2 MG/ML Syringe 1 MG IV (14:25)
[2020-03-31 14:48] LABS: Anion Gap 9 (5-15); BUN 19 mg/dL (7-18); BUN/Creat Ratio 13.3 RATIO (10-20); Calcium,Total 9.8 mg/dL (8.5-10.1); Chloride 100 mmol/L (98-107); Creatinine, Serum 1.43 mg/dL (0.70-1.30); EST Glomerular Filtration Rate 54 mL/min (>60); Est Glom Filt Rate - Afr Amer 65 mL/min (>60); Glucose 102 mg/dL (74-106); Potassium 3.8 mmol/L (3.5-5.1); Sodium Level 137 mmol/L (136-145)
[2020-03-31] MEDS: 0.9% Normal Saline 1,000 ML 1000 ML IV (16:22)
[2020-03-31 16:24] VITALS: BP 164/89; PULSE 86; O2SAT 95
== END 2020-03-31 16:54 | disposition home or self-care (01) ==
PROVIDERS: Emergency Provider Emergency Medicine; PCP Family Medicine
DX: M51.9 Unspecified thoracic, thoracolumbar and lumbosacral intervertebral disc disorder (principal); M48.061 Spinal stenosis, lumbar region without neurogenic claudication; M48.56XA Collapsed vertebra, not elsewhere classified, lumbar region, initial encounter for fracture; I10 Essential (primary) hypertension; Z87.891 Personal history of nicotine dependence; Z79.891 Long term (current) use of opiate analgesic; Z79.899 Other long term (current) drug therapy
CPT/HCPCS: 72158; 80048; 96361; 96374; 96375; 99283; A9575; J7030; A4216

== ENCOUNTER → 2020-04-07 | Outpatient (CLI) | payer OTHER, SELFPAY ==
[2020-03-31 13:34] VITALS: BMI 30.5
[2020-04-07 11:54] LABS: Erythrocyte Sedimentation Rate 16 mm/hr (0-20)
[2020-04-07 11:58] LABS: Hematocrit 36.7 % (40-54); Hemoglobin 11.7 g/dL (13.0-16.5); Mean Corp Hgb Conc 31.9 g/dL (32-36); Mean Corpuscular Hgb 30.7 pg (27.0-32.0); Mean Corpuscular Volume 96.3 fL (80-94); Mean Platelet Vol. 10.2 fl (6.2-12.0); POSITIVE COUNT YES; POSITIVE MORPHOLOGY YES; Platelet Count 269 K/mm3 (150-450); RBC Distribution Width CV 14.3 % (11.6-14.6); RBC Distribution Width SD 49.7 fl (35.1-43.9); Red Blood Count 3.81 M/mm3 (4.6-6.2); White Blood Count 5.2 K/mm3 (4.4-11.0)
[2020-04-07 12:01] LABS: Differential Indicated MANUAL DIFF
[2020-04-07 12:51] LABS: Eosinophil 1 % (0-5); Lymphocyte 23 % (19-41); Monocyte 11 % (0-10); Neutrophil-Band 5 % (0-5); Neutrophil-Segmented 60 % (47-70); Platelet Estimate ADEQUATE (ADEQ); Red Cell Morphology NORM C+C NORMAL (NORM C&C); Total Cells Counted 100 (MANUAL DIFF)
[2020-04-07 12:53] LABS: Absolute Neutrophil Count 3.4 X10^3/uL (2.0-7.7)
[2020-04-11 13:44] LABS: Pathologist Review Reviewed
[2020-04-12 16:08] LABS: PROEL- A/G Ratio 1.1 (0.7-1.7); PROEL- Albumin 3.8 g/dL (2.9-4.4); PROEL- Alpha-1 Globulin 0.2 g/dL (0.0-0.4); PROEL- Alpha-2 Globulin 0.9 g/dL (0.4-1.0); PROEL- Beta Globulin 1.3 g/dL (0.7-1.3); PROEL- Gamma Globulin 1.1 g/dL (0.4-1.8); PROEL- Globulin, Total 3.5 g/dL (2.2-3.9); PROEL- TOTAL PROTEIN 7.3 g/dL (6.0-8.5); PROELU- Albumin, Urine 36.6 % (.); PROELU- Alpha-1-Globulin,Ur 2.2 % (.); PROELU- Alpha-2-Globulin,Ur 19.9 % (.); PROELU- Beta Globulin, Ur 27.6 % (.); PROELU- Gamma Globulin, Ur 13.6 % (.); Total Protein, Ur 20.6 mg/dL (Not Estab.)
== END | disposition home or self-care (01) ==
LOC: LAB 10:54
PROVIDERS: PCP Family Medicine; Referring Provider Orthopaedic Surgery; Visit Provider Orthopaedic Surgery
DX: S32.010A Wedge compression fracture of first lumbar vertebra, initial encounter for closed fracture (principal)
CPT/HCPCS: 36415; 84165; 84166; 85025; 85652; 86140

== ENCOUNTER → 2020-04-13 | Outpatient (CLI) | payer OTHER, SELFPAY ==
[2020-03-31 13:34] VITALS: BMI 30.5
--- NOTE | 2020-04-13 07:55 | NM_ITS ---
CLINICAL: 59-year-old male with reported history of apparent rib-compression fracture. LIMITED PLANAR 99m Tc MDP RADIONUCLIDE BONE SCINTIGRAPHY COMPARISON: MRI of the lumbar spine report 03/31/2020 FINDINGS: Following the intravenous administration of 26.2 mCi of 99m Tc MDP, bone acquisitions of the thoracic-lumbar spine, pelvis and bilateral lower extremities reveal: 1. Increased radiopharmaceutical concentration is identified in the right anterior fourth-fifth, left anterior-anterolateral third, eighth-10th ribs, focally apparent in the sixth thoracic vertebra posteriorly on the left, ninth-10th, 12th thoracic vertebra, first-second and fourth lumbar vertebra diffusely and linear increased tracer concentration observed in the seventh-left posterior ribs. 2. Enhanced radiotracer distribution appears evident in the right midfoot and forefoot, medial compartment of the right knee, posterior compartment of the right ankle. 3. The remaining skeletal structures are scintigraphically unremarkable with the bilateral renal images and urinary bladder activity identified. NM/Bone Scan Whole Body IMPRESSION: 1. The increase in radiopharmaceutical concentration identified in the bilateral ribs, multiple thoracic and lumbar vertebra is most consistent with trauma-fracture. 2. Degenerative arthritis appears expressed in the right mid and forefoot, right knee, the right ankle articulation. 3. No other definitive scintigraphic abnormalities are noted. There is no typical scintigraphic evidence of diffuse axial skeletal metastatic disease on the current examination. Electronically Signed: Milton Myers DO at 22:54 EDT Tel , Service support ,
== END | disposition home or self-care (01) ==
PROVIDERS: PCP Family Medicine; Referring Provider Orthopaedic Surgery; Visit Provider Orthopaedic Surgery
DX: S32.010A Wedge compression fracture of first lumbar vertebra, initial encounter for closed fracture (principal); S22.030A Wedge compression fracture of third thoracic vertebra, initial encounter for closed fracture
CPT/HCPCS: 78306

== ENCOUNTER → 2020-04-27 | Outpatient (CLI) | payer OTHER, SELFPAY ==
[2020-03-31 13:34] VITALS: BMI 30.5
[2020-04-24 16:52] LABS: Creatinine, Serum 1.47 mg/dL (0.70-1.30); EST Glomerular Filtration Rate 52 mL/min (>60); Est Glom Filt Rate - Afr Amer 63 mL/min (>60)
--- NOTE | 2020-04-27 17:50 | MRI_ITS ---
STUDY: MRI THORACIC SPINE WITHOUT CONTRAST REASON FOR EXAM: Male, 59 years old. wedge compression fx L1, back pain, no known trauma, follow up to lumbar mri and bone scan TECHNIQUE: Standardized fat and water weighted pulse sequences were obtained in the sagittal and axial planes. COMPARISON: 03/31/2020. FINDINGS: Thoracic kyphosis maintained. No significant scoliosis. No abnormal cord signal. Conus medullaris terminates normally at the T12 level. Normal mediastinum. Normal lungs given MRI technique. Normal retroperitoneum. Normal paraspinal muscles. Acute/subacute compression deformities at the T8, T10, T11 and T12 levels without retropulsion. Approximately 50-60% vertebral body height loss at the T8, T10 and T11 levels. Chronic T9 vertebral body height loss of approximately 70-80%. No acute dislocation. No acute cortical destruction. T3-4 right paracentral disc protrusion without central canal narrowing. T6-7 shallow central disc protrusion without central canal narrowing. T10-11 bilateral neural foraminal narrowing. Additional visualized levels: Multilevel disc desiccation. No central canal narrowing. No significant neural foraminal narrowing. Mild endplate spondylosis. No spondylolisthesis. C6-7 intervertebral disc disease with mild central canal narrowing. MRI/Spine Thoracic (Routine) IMPRESSION: No abnormal cord signal Acute/subacute T8, T10, T11 and T12 vertebral body fractures without retropulsion Multilevel intervertebral disc disease without central canal narrowing T10-11 bilateral neural foraminal narrowing C6-7 intervertebral disc disease with mild central canal narrowing Electronically Signed: Israel Ramos DO at 9:33 EDT Tel , Service support ,
== END | disposition home or self-care (01) ==
LOC: MRI 17:37
PROVIDERS: PCP Family Medicine; Referring Provider Orthopaedic Surgery; Visit Provider Orthopaedic Surgery
DX: S32.010A Wedge compression fracture of first lumbar vertebra, initial encounter for closed fracture (principal); N28.9 Disorder of kidney and ureter, unspecified
CPT/HCPCS: 36415; 72146; 82565

== ENCOUNTER → 2020-05-11 | Outpatient (CLI) | payer OTHER, SELFPAY ==
--- NOTE | 2020-05-11 13:42 | BON_PTH ---
PATIENT: MAKAYLA CYR LOC: [facility] U#:[id number] AGE/SX: 59/M ROOM: RE05/11/[address]: Dr. Lopez De La Cruz MD : 1960 BED: DIS: 05/11/2020 SPEC #: [id number] RECD: 05/11/20 15:15 STATUS: KADI ANOOP #: [id number] KIMMY: 05/11/20 13:[address]: Lopez De La Cruz DEPT: SURGICAL PATHOLOGY RECD BY: Ross Jones ENTERED: 05/12/20 07:30 SP TYPE: Bone OTHR DR: Dr. Israel Reed MD [facility] Tissues: A - Vertebra, NOS B - Vertebra, NOS Procedures: Decalcification bone/plaque Surgery Specimen Level V HEADER OPERATION: Kyphoplasty of L1 and L3 PRE-OP DIAGNOSIS: Fracture of first and third vertebra TISSUE SUBMITTED: A - Bone L1, B - Bone L3 MICROSCOPIC DIAGNOSIS A. L1 bone, core biopsy: Consistent with organizing fracture site. Trilineage hematopoiesis. B. L3 bone, core biopsy: Consistent with organizing fracture site. Trilineage hematopoiesis. AM:ifeoma 05/16/20 MICROSCOPIC DESCRIPTION Slides are reviewed. GROSS DESCRIPTION A - Received in fixative is one container labeled with the patient's name and designated bone L1. The specimen consists of an elongated piece of barnett-pink bone measuring 1 cm in length and 0.2 cm in diameter. The specimen is totally submitted in one cassette after decalcification. B - Received in fixative is one container labeled with the patient's name and designated bone L3. The specimen consists of an elongated piece of barnett bone measuring 1 cm in length and 0.2 cm in diameter. The specimen is totally submitted in one cassette after decalcification. / EMPERATRIZ:ifeoma 05/12/20 TC:5 CPT: 44927 x2, 81224 x2
== END | disposition home or self-care (01) ==
LOC: LABSPEC 15:19
PROVIDERS: PCP Family Medicine; Referring Provider Anesthesiology Pain Medicine; Visit Provider Anesthesiology Pain Medicine
DX: S32.019A Unspecified fracture of first lumbar vertebra, initial encounter for closed fracture (principal); S32.039A Unspecified fracture of third lumbar vertebra, initial encounter for closed fracture
CPT/HCPCS: 88305; 88307; 88311

== ENCOUNTER → 2020-05-25 | Outpatient (CLI) | payer OTHER, SELFPAY ==
[2020-05-25 12:23] LABS: Erythrocyte Sedimentation Rate 13 mm/hr (0-20)
[2020-05-25 12:25] LABS: Absolute Lymphocyte Count 1.26 X10^3/uL (0.83-4.51); Absolute Neutrophil Count 1.4 X10^3/uL (2.0-7.7); Basophil# 0.09 X10^3/uL; Basophil% 2.7 % (0-1); Eosinophil# 0.07 X10^3/uL; Eosinophils% 2.1 % (0-5); Hematocrit 38.4 % (40-54); Hemoglobin 12.4 g/dL (13.0-16.5); Lymphocyte # 1.26 X10^3/ul (4.0); Lymphocyte % 38.3 % (19-41); Mean Corp Hgb Conc 32.3 g/dL (32-36); Mean Corpuscular Hgb 30.4 pg (27.0-32.0); Mean Corpuscular Volume 94.1 fL (80-94); Mean Platelet Vol. 10.4 fl (6.2-12.0); Monocyte# 0.32 X10^3/uL; Monocyte% 9.7 % (0-10); NRBC Flagged by Analyzer 0.9 % (0-5); Neutrophil # 1.39 X10^3/uL (2.7-7.7); Neutrophil % 42.3 % (47-70); Platelet Count 303 K/mm3 (150-450); RBC Distribution Width CV 14.2 % (11.6-14.6); RBC Distribution Width SD 47.4 fl (35.1-43.9); Red Blood Count 4.08 M/mm3 (4.6-6.2); Reticulocyte Count 4.94 % (0.5-1.5); White Blood Count 3.3 K/mm3 (4.4-11.0)
[2020-05-25 12:34] LABS: PTHIN 11.7 pg/mL (18.4-80.1)
[2020-05-25 12:39] LABS: Vitamin B12 498 pg/mL (211-911); Vitamin D,25 Hydroxy 30.9 ng/mL
[2020-05-25 12:49] LABS: AST(SGOT) 32 U/L (15-37); Alanine Aminotransfer ALT/SGPT 51 U/L (16-61); Alkaline Phosphatase 176 U/L (45-117); Anion Gap 7 (5-15); BUN 17 mg/dL (7-18); BUN/Creat Ratio 12.8 RATIO (10-20); CRP < 2.90 mg/L (0.0-3.0); Calcium,Total 9.8 mg/dL (8.5-10.1); Chloride 103 mmol/L (98-107); Creatinine, Serum 1.33 mg/dL (0.70-1.30); EST Glomerular Filtration Rate 58 mL/min (>60); Est Glom Filt Rate - Afr Amer 70 mL/min (>60); Ferritin 458 ng/mL (26-388); Globulin 4.1 g/dL (2.2-4.2); Glucose 88 mg/dL (74-106); Iron 136 ug/dL (65-175); Iron Binding Capacity,Total 361 ug/dL (250-450); Microalbumin,Random Urine 58.7 mg/L (NO RANGE EST.); PERCENT IRON SATURATION 37.7 % (15.0-55.0); Potassium 3.8 mmol/L (3.5-5.1); Prealbumin 33.3 mg/dL (20.0-40.0); Protein, Total 8.1 g/dL (6.4-8.2); Sodium Level 138 mmol/L (136-145); Thyroid Stim Hormone (TSH) 3.04 uIU/mL (0.358-3.74)
[2020-05-26 16:08] LABS: Endomysial Antibody IgA Negative (Negative)
[2020-05-26 16:24] LABS: Immunoglobulin A 288 mg/dL (90-386); t-Transglutaminase IgA <2 U/mL (0-3)
[2020-05-27 08:08] LABS: Beef <0.10 kU/L (Class 0); Chocolate <0.10 kU/L (Class 0); Corn <0.10 kU/L (Class 0); Egg, Whole <0.10 kU/L (Class 0); Milk (Cow) <0.10 kU/L (Class 0); Peanut <0.10 kU/L (Class 0); Pork <0.10 kU/L (Class 0); Soybean <0.10 kU/L (Class 0); Wheat <0.10 kU/L (Class 0)
[2020-05-29 10:26] LABS: ANTINUCLEAR ANTIBODIES DIRECT Negative (Negative)
== END | disposition home or self-care (01) ==
LOC: MTLAB 09:38
PROVIDERS: PCP Family Medicine; Referring Provider Family Medicine; Visit Provider Family Medicine
DX: D64.9 Anemia, unspecified (principal); K90.9 Intestinal malabsorption, unspecified; M81.0 Age-related osteoporosis without current pathological fracture; R79.82 Elevated C-reactive protein (CRP)
CPT/HCPCS: 36415; 80053; 82043; 82306; 82570; 82607; 82728; 82746; 82784; 83516; 83540; 83550; 83970; 84134; 84443; 85025; 85045; 85652; 86003; 86005; 86038; 86140; 86255

== ENCOUNTER → 2020-05-29 | Outpatient (CLI) | payer OTHER, SELFPAY ==
[2020-05-29 10:09] LABS: 24 Hour Urine Protein 189.1 mg/24HR (<150 MG/24HR); 24HR. UA Prot. Total Volume 1525 mL; Urine Protein (24 Hour) 12.4 mg/dL (<11.9)
[2020-05-29 10:36] LABS: 24HR UR TOTAL VOLUME 1525 ml; Calcium Urine pH Range 2; Urine Calcium (Random) < 5.0 (Not Estab.)
== END | disposition home or self-care (01) ==
LOC: LABSPEC 08:35
PROVIDERS: PCP Family Medicine; Referring Provider Family Medicine; Visit Provider Family Medicine
DX: M81.0 Age-related osteoporosis without current pathological fracture (principal)
CPT/HCPCS: 82340; 82570; 84156

== ENCOUNTER → 2020-06-07 14:44 | Outpatient (CLI) | payer OTHER, SELFPAY ==
[2020-06-06 10:12] VITALS: BMI 30.8
--- NOTE | 2020-06-07 14:48 | RAD_ITS ---
STUDY: X-RAY - CERVICAL SPINE REASON FOR EXAM: Male, 59 years old. neck pain, left arm numbness TECHNIQUE: 5 view(s) of the cervical spine were obtained. COMPARISON: None FINDINGS: Normal anterior atlantoaxial articulation. Normal odontoid process. Normal cervical lordosis. There is multi-level endplate spondylosis. There is multi-level degenerative disc disease with multilevel disc space narrowing. Normal visualized intervertebral neuroforamina. The soft tissue structures are unremarkable. RAD/Cerv Spine 4 or 5 Views IMPRESSION: Moderate degenerative disc disease lower cervical spine. Electronically Signed: Milton Dominguez MD at 15:19 EST Tel , Service support ,
== END ==
PROVIDERS: PCP Family Medicine; Referring Provider Anesthesiology Pain Medicine; Visit Provider Anesthesiology Pain Medicine
DX: M54.2 Cervicalgia (principal); R20.0 Anesthesia of skin
CPT/HCPCS: 72050

== ENCOUNTER → 2020-06-14 08:49 | Outpatient (CLI) | payer OTHER, SELFPAY ==
[2020-06-06 10:12] VITALS: BMI 30.8
--- NOTE | 2020-06-14 08:55 | BD_ITS ---
STUDY: DUAL ENERGY X-RAY ABSORPTIOMETRY / DXA REASON FOR EXAM: Male, 59 years old. ISMAEL OF 2 INCHES -- MULTIPLE COMPRESSION FX''S WITH KYPHOPLASTY -- HX OF SMOKING- QUIT 4 YRS AGO -- STARTED FOSAMAX x2 WEEKS AGO -- DOES MODERATE AMOUNT OF EXERCISE -- HX OF DISCECTOMY TECHNIQUE: Bone Mineral Density (BMD) measurements of lumbar spine and bilateral hips were obtained. COMPARISON: None. FINDINGS: Lumbar Spine (L1-L4): g/cm2 (1.043) / T-score (-1.6) / Z-score (-1.3) Findings are suggestive of osteopenia with a moderate fracture risk. Left Femur Total: g/cm2 (0.902) / T-score (-1.4) / Z-score (-0.9) Left Femoral Neck: g/cm2 (0.879) / T-score (-1.5) / Z-score (-0.5) Right Femur Total: g/cm2 (0.927) / T-score (-1.2) / Z-score (-0.7) Right Femoral Neck: g/cm2 (0.922) / T-score (-1.1) / Z-score (-0.2) BD/Dexa Bone Density Study IMPRESSION: The patient is considered osteopenic as outlined below according to World [employer] Organization (WHO) criteria with a moderate fracture risk. Reference Information: The T-score is the number of standard deviations above or below the standard which is normal for young adults at their peak bone mineral density. The World Health Organization (WHO) interprets the T-scores as follows: Above -1 Normal bone density Between -1 and -2.5 Osteopenia Equal to / or below -2.5 Osteoporosis As a practical clinical guideline, osteopenia may be graded as follows: Mild -1 through -1.5 Moderate -1.6 through -2.0 Severe -2.1 through -2.4 The Z-score is the number of standard deviations above or below age-matched controls. A Z-score of less than -1.5 would be considered abnormal. References: 1. NIH Osteoporosis and Related Bone Diseases www osteo.org 2. International Society for Clinical Densitometry www iscd.org 3. National Osteoporosis Foundation www nof.org Electronically Signed: Flavio Hatch, at 14:02 EST , Service support ,
--- NOTE | 2020-06-14 09:15 | RAD_ITS ---
STUDY: X-RAY BONE SURVEY COMPLETE REASON FOR EXAM: Male, 59 years old. hx of surgery to L1 + L3, hx of multiple compression fractures, abnormal labs TECHNIQUE: One view of the pelvis was obtained. 2 views of the cervical spine were obtained. 3 views of the thoracic spine were obtained. 2 views of the lumbar spine were obtained. 4 views of the lower extremities. 2 views of the upper extremities. : 2 views of the skull were obtained. COMPARISON: None. FINDINGS: CHEST: The lungs are clear and expanded. There is no demonstrated pleural abnormality. Normal size heart. Normal mediastinum and ruddy. Normal visualized pulmonary arteries. Normal visualized aortic arch and descending thoracic aorta. Normal visualized thoracic spine. Normal visualized ribs, clavicles, and shoulders. PELVIS: There is a non-specific bowel gas pattern. Normal visualized soft tissue structures. Normal bilateral iliac wings, sacroiliac joints and visualized sacrum. Normal visualized bilateral superior and inferior pubic rami. Normal pubic symphysis. Normal ischial tuberosities. Normal visualized right femoral head. Normal right acetabulum. Normal right hip joint. Normal visualized left femoral head. Normal left acetabulum. Normal left hip joint. CERVICAL SPINE: Normal anterior atlantoaxial articulation. Normal odontoid process. Normal cervical lordosis. Degenerative changes of the vertebral bodies with mild spurring of the lower cervical endplates. Limited visualization of C7. Slightly narrowed disc space heights. The soft tissue structures are unremarkable. THORACIC SPINE: Normal kyphosis of the thoracic spine. There is no substantial scoliosis. Mild central depressions of the lower thoracic endplates. Normal disc space heights. The soft tissue structures are unremarkable. LUMBAR SPINE: Normal lumbar lordosis. There is no substantial scoliosis. There is a normal alignment of the vertebrae. Mild central depressions of the L1-L3 endplates. Mild old compression of L1 and L3 with previous vertebroplasty. Mild wedge compression of L5. Degenerative endplate spurring at L5-S1. Narrowed L5-S1 disc space. The soft tissue structures are unremarkable. RIGHT FEMUR: Normal visualized femur. Normal visualized soft tissue structure. LEFT FEMUR: Normal visualized femur. Normal visualized soft tissue structure. RIGHT HUMERUS :Normal visualized humerus. There is no demonstrated fracture or osseous destructive process. There is no demonstrated soft tissue abnormality. LEFT HUMERUS:Normal visualized humerus. There is no demonstrated fracture or osseous destructive process. There is no demonstrated soft tissue abnormality. SKULL: There is no demonstrated soft tissue swelling. Normal osseous calvarium. Normal visualized facial bones. Normal visualized paranasal sinuses. RAD/Bone Survey Comp(Axial&Append) IMPRESSION: Degenerative changes as noted. No blastic or lytic lesions. Mild central depression of lower thoracic segments. Old compression of L1 and L2 previous vertebroplasty. Mild wedge compression of L5. Generalized osteopenia. Electronically Signed: Jamari Elizabeth DO at 23:05 EST Tel [phone], Service support ,
== END ==
PROVIDERS: PCP Family Medicine; Referring Provider Internal Medicine Medical Oncology; Visit Provider Internal Medicine Medical Oncology
DX: M81.0 Age-related osteoporosis without current pathological fracture (principal); R79.89 Other specified abnormal findings of blood chemistry; S32.000A Wedge compression fracture of unspecified lumbar vertebra, initial encounter for closed fracture; S32.010A Wedge compression fracture of first lumbar vertebra, initial encounter for closed fracture; S32.030A Wedge compression fracture of third lumbar vertebra, initial encounter for closed fracture
CPT/HCPCS: 77075; 77080

== ENCOUNTER → 2020-06-20 13:52 | Outpatient (CLI) | payer OTHER, SELFPAY ==
[2020-06-06 10:12] VITALS: BMI 30.8
--- NOTE | 2020-06-20 13:53 | CT_ITS ---
STUDY: LOW DOSE CT LUNG CANCER SCREENING REASON FOR EXAM: Male, 59 years old. LUNG CANCER SCREENING, FORMER SMOKER, 40 PACK YEAR HISTORY. KNOWN COMPRESSION FX THORACIC AND LUMBAR. HTN. RADIATION DOSAGE (If Supplied By Facility): CTDIvol = ( 4.02 ) mGy, DLP = ( 156.02 ) mGycm TECHNIQUE: No contrast was administered. Low dose technique was utilized (average mAS-38 and kVp 120). 1.25 mm axial source images with a slice interval of 1.25-mm were reconstructed in lung windows. 2.5 mm axial source images with a slice interval of 2.5-mm were reconstructed in lung windows. 5.0 mm axial source images with a slice interval of 5.0-mm were reconstructed in soft tissue windows. Nodule measured using lung windows on PACS and/or independent workstation with automated measurement of minimum and maximum diameter. Nodule measurement reported as average diameter rounded to the nearest whole number. Growth is defined as an increase ins size of greater than 1.5 mm. COMPARISON: Comparison is made with prior study dated 06/30/2017. NODULES: No suspicious nodules are seen. Emphysema: Hyperinflation. Emphysematous changes. Stable linear scarring in the lung apices more prominent on the left side. Minimal linear scarring is seen in the medial anterior aspect of the right upper lobe. Mild scarring along the peripheral lateral aspect of the right major fissure. Since prior study, there has been progressive linear markings in the anterior aspect of the right middle lobe suggestive of scarring. Mild linear scarring in the anterior aspect of the right lower lobe and lateral aspect of the right lower lobe. Endobronchial lesion: None Aorta: Atherosclerotic calcification of the aortic arch. Coronary arteries: Coronary artery calcification. Heart: Unremarkable. Pulmonary artery: Unremarkable. Mediastinal nodes: Small benign-appearing mediastinal lymph nodes. Other chest and abdominal findings: Demineralization of the thoracic vertebrae and loss of height of a mid dorsal vertebra. Prior vertebroplasty of an upper lumbar vertebrae. CT/Low Dose CT Lung Screening IMPRESSION: Lung-RADS category 2 - Continue annual screening with LDCT in 12 months. IMPORTANT NOTES FOR USE: ACR Lung-RADS Version 1.0 Assessment Categories Release Date: November 29, 2013 Category: Coded 0-4 bases on nodule(s) with highest degree of suspicion. Negative screen is defined as categories 1 and 2; a positive screen is defined as categories 3 and 4. Category 3 and 4A nodules that are unchanged on interval CT should be coded as category 2, and individuals returned to screening in 12 months. Category 4X: Category 3 or 4 nodules with additional imaging findings that increase the suspicion of lung cancer, such as spiculation, GGN that doubles in size in 1 year, enlarged lymph notes, etc. Category Modifiers: S (significant finding unrelated to lung cancer) and C (prior history of treated lung cancer) may be added to the 0-4 Lung-RADS Electronically Signed: Flavio Hatch, at 14:16 EST , Service support ,
== END ==
PROVIDERS: PCP Family Medicine; Referring Provider Nurse Practitioner Family; Visit Provider Nurse Practitioner Family
DX: Z87.891 Personal history of nicotine dependence (principal); Z12.2 Encounter for screening for malignant neoplasm of respiratory organs
CPT/HCPCS: G0297

== ENCOUNTER → 2020-07-13 16:35 | Outpatient (CLI) | payer OTHER, SELFPAY ==
[2020-07-05 10:34] VITALS: BMI 29.2
== END ==
PROVIDERS: PCP Family Medicine; Referring Provider Internal Medicine Gastroenterology; Visit Provider Internal Medicine Gastroenterology
DX: Z11.59 Encounter for screening for other viral diseases (principal)
CPT/HCPCS: 87635; C9803; U0003

== ENCOUNTER → 2020-07-17 09:00 | Outpatient (CLI) | payer OTHER, SELFPAY ==
[2020-07-05 10:34] VITALS: BMI 29.2
--- NOTE | 2020-07-17 09:01 | US_ITS ---
STUDY: ABDOMINAL ULTRASOUND REASON FOR EXAM: Male, 59 years old. Elevated ferritin TECHNIQUE: Transabdominal ultrasound was performed with real-time and static coy scale imaging. TECHNICAL QUALITY: Adequate. COMPARISON: None. FINDINGS: Liver: The liver measures 17.5 cm. There is increased echogenicity consistent with fatty infiltration. The bile ducts are within normal limits. There is hepatic color flow. The direction of portal flow is hepatopetal. There is no demonstrated mass lesion. Portal vein measurement: Gallbladder: Normal distended gallbladder. The gallbladder wall measures 3.0 mm. There is a negative sonographic Zhong''s sign. There is no pericholecystic fluid. There are no gallstones. Common Bile Duct (C.B.D.): The common bile duct measures 4 mm. Pancreas: There is nonvisualization of the pancreas due to overlying bowel gas. There is normal echogenicity of the pancreas. There is no demonstrated pancreatic mass or cyst. Spleen: Normal size of the spleen. The spleen measures 12.6 cm x 4.6 cm x 5.8 cm. Right Kidney: Normal size of the right kidney. The right kidney measures 11.4 cm x 5.1 cm x 5.7 cm. Normal renal cortex. The right cortex measures 1.8 cm. There is no demonstrated renal mass or cyst. There is no right hydronephrosis. Left Kidney: Normal size of the left kidney. The left kidney measures 11.8 cm x 5.4 cm x 5.6 cm. Normal renal cortex. The left cortex measures 2.1 cm. There is no demonstrated renal mass or cyst. There is no left hydronephrosis. Aorta: Unremarkable I.V.C.: The IVC is patent. There is no ascites. US/Abdomen Complete IMPRESSION: Fatty infiltration of the liver. Electronically Signed: Flavio Hatch, at 15:33 EST , Service support ,
== END ==
PROVIDERS: PCP Family Medicine; Referring Provider Nurse Practitioner Family; Visit Provider Nurse Practitioner Family
DX: R79.89 Other specified abnormal findings of blood chemistry (principal)
CPT/HCPCS: 76700

== ENCOUNTER → 2020-09-29 14:51 | Outpatient (CLI) | payer OTHER, SELFPAY ==
[2020-09-29 13:54] VITALS: BMI 30.9
[2020-09-29 17:21] LABS: Vitamin D,25 Hydroxy 31.2 ng/mL
[2020-09-29 17:34] LABS: CRP < 2.90 mg/L (0.0-3.0); Calcium,Total 9.1 mg/dL (8.5-10.1)
[2020-10-03 20:23] LABS: Vitamin D 1,25-Dihydroxy 28.6 pg/mL (19.9-79.3)
[2020-10-06 16:26] LABS: Vitamin A, Retinol 70.8 ug/dL (22.0-69.5)
== END ==
PROVIDERS: PCP Family Medicine; Referring Provider Internal Medicine Endocrinology, Diabetes & Metabolism; Visit Provider Internal Medicine Endocrinology, Diabetes & Metabolism
DX: E83.52 Hypercalcemia (principal); M81.0 Age-related osteoporosis without current pathological fracture
CPT/HCPCS: 36415; 82306; 82310; 82652; 84590; 86140

== ENCOUNTER → 2020-11-09 14:57 | Outpatient (CLI) | payer OTHER, SELFPAY ==
[2020-10-11 13:42] VITALS: BMI 32.0
[2020-11-09 18:19] LABS: Cholesterol 179 mg/dL (200); High Density Lipoprotein 51 mg/dL; Triglycerides 147 mg/dL; Very Low Density Lipoprotein 29 mg/dL (5-40)
[2020-11-18 20:05] LABS: Vitamin A, Retinol 63.8 ug/dL (22.0-69.5)
== END ==
PROVIDERS: Internal Medicine Endocrinology, Diabetes & Metabolism; PCP Family Medicine; Referring Provider Family Medicine; Visit Provider Family Medicine
DX: T45.2X1A Poisoning by vitamins, accidental (unintentional), initial encounter (principal); Z13.220 Encounter for screening for lipoid disorders
CPT/HCPCS: 36415; 80061; 84590

== ENCOUNTER → 2021-02-01 16:52 | Outpatient (CLI) | payer OTHER, SELFPAY ==
[2020-10-11 13:42] VITALS: BMI 32.0
--- NOTE | 2021-02-01 17:01 | MRI_ITS ---
STUDY: MRI RIGHT SHOULDER REASON FOR EXAM: Male, 60 years old. RT SHOULDER IMPINGEMENT TECHNIQUE: Standardized fat and water weighted pulse sequences were obtained in all 3 orthogonal planes. COMPARISON: Chest x-ray dated March 31, 2018 FINDINGS: Partial interstitial tears of the supraspinatus tendon are present proximal to the greater tuberosity insertion site within the mid substance fibers as well as the bursal surface fibers. Mild signal abnormality and swelling of the affected portions of the supra spinatus tendon is present. A small glenohumeral joint effusion is also present. A small linear tear is present in the posterior aspect of the superior glenoid labrum. Normal remaining aspects of the glenoid labrum. Normal infraspinatus tendon. Normal subscapularis tendon. Normal teres minor tendon. Normal supraspinatus muscle. Normal infraspinatus muscle. Normal subscapularis muscle. Normal teres minor muscle. Normal glenohumeral articulation. Normal humeral head and visualized proximal humerus. Normal biceps labral complex. Normal intracapsular long biceps tendon. Normal capsulo- ligamentous complex. Normal rotator interval. Normal acromioclavicular articulation. There is a Type II morphology (curved), with a neutral orientation. There is no subacromial-subdeltoid bursal fluid. Normal visualized coracohumeral and coracoacromial ligaments. Normal quadrilateral space. Normal axillary space. Normal deltoid muscle. Normal trapezius muscle. MRI/Upper Ext Joint Only(Routine) IMPRESSION: 1. Partial interstitial tears of the supraspinatus tendon are present proximal to the greater tuberosity insertion site within the mid substance fibers as well as the bursal surface fibers. 2. Mild signal abnormality and swelling of the affected portions of the supra spinatus tendon is present. 3. A small glenohumeral joint effusion is also present. 4. A small linear tear is present in the posterior aspect of the superior glenoid labrum. Normal remaining aspects of the glenoid labrum. Electronically Signed: Abiel Carrington MD at 21:27 EDT , Service support ,
== END ==
PROVIDERS: PCP Family Medicine; Referring Provider Orthopaedic Surgery; Visit Provider Orthopaedic Surgery
DX: M75.41 Impingement syndrome of right shoulder (principal)
CPT/HCPCS: 73221

== ENCOUNTER → 2021-02-16 11:13 | Outpatient (CLI) | payer OTHER, SELFPAY ==
[2020-10-11 13:42] VITALS: BMI 32.0
[2021-02-16 12:01] LABS: Color, Urine Yellow (Yellow); Glucose, Dipstick Normal (Normal); Ketone-Dipstick Negative (Negative); Leukocyte Esterase-Dipstick Negative /ul (Negative); Nitrite-Dipstick Negative (Negative); Occult Blood-Urine 25 /ul (Negative); Protein-Dipstick Negative (Negative); Specific Gravity, Urine 1.015 (1.002-1.030); Urine Bilirubin Dipstick Negative (Negative); Urine Clarity Clear (Clear); Urine Urobilinogen Normal (Normal)
[2021-02-16 12:12] LABS: Protein, Urine (Random) 17.7 mg/dL (<11.9); Protein:Creat Ratio 71 mg/g CRE (0-200)
[2021-02-16 12:13] LABS: Anion Gap 5 (5-15); BUN 24 mg/dL (7-18); BUN/Creat Ratio 14.1 RATIO (10-20); Calcium,Total 9.3 mg/dL (8.5-10.1); Chloride 102 mmol/L (98-107); EST Glomerular Filtration Rate 44 mL/min (>60); Est Glom Filt Rate - Afr Amer 53 mL/min (>60); Glucose 99 mg/dL (74-106); Potassium 4.1 mmol/L (3.5-5.1); Sodium Level 134 mmol/L (136-145)
== END ==
PROVIDERS: PCP Family Medicine; Referring Provider Internal Medicine Nephrology; Visit Provider Internal Medicine Nephrology
DX: N18.31 Chronic kidney disease, stage 3a (principal)
CPT/HCPCS: 36415; 80048; 81002; 82570; 84156

== ENCOUNTER → 2021-02-21 14:15 | Outpatient (CLI) | payer OTHER, SELFPAY ==
[2020-10-11 13:42] VITALS: BMI 32.0
[2021-02-21] MEDS: DENOSUMAB 60 MG/ML SC (14:25)
[2021-02-21 14:39] VITALS: BP 102/62; PULSE 80; RESP 16; TEMP 36.2; O2SAT 95; BMI 32.0
== END ==
PROVIDERS: PCP Family Medicine; Referring Provider Nurse Practitioner Family; Visit Provider Nurse Practitioner Family
DX: M81.0 Age-related osteoporosis without current pathological fracture (principal)
CPT/HCPCS: 96372; J0897

== ENCOUNTER → 2021-02-28 16:55 | Outpatient (CLI) | payer OTHER, SELFPAY ==
[2021-02-21 14:39] VITALS: BMI 32.0
--- NOTE | 2021-02-28 16:59 | RAD_ITS ---
STUDY: X-RAY - LEFT FOOT CLINICAL: Male, 60 years old. LEFT FOOT PAIN OFF AND ON FOR A MONTH OR SO. NO KNOWN INJURY. TECHNIQUE: 3 view(s) of the foot. COMPARISON: None. FINDINGS: Mild osteophyte formation is seen on the dorsum of the first TMT articulation. Normal talus, calcaneus, and tarsal bones. Normal visualized subtalar, talonavicular, calcaneocuboid, tarsal and tarsometatarsal articulations. Normal metatarsi. Normal metatarsophalangeal joint of the great toe. Normal tibial and fibular sesamoid bones. Normal interphalangeal joint of the great toe. Normal phalanges of the great toe. Normal second through fifth metatarsophalangeal joints. Normal interphalangeal joints and phalanges of the lesser toes. The soft tissue structures are unremarkable. There is no demonstrated fracture. RAD/Foot min 3 Views IMPRESSION: 1. Mild osteophyte formation is seen on the dorsum of the first TMT articulation. Electronically Signed: Abiel Carrington MD at 18:35 EDT , Service support ,
== END ==
PROVIDERS: PCP Family Medicine; Referring Provider Family Medicine; Visit Provider Family Medicine
DX: M79.672 Pain in left foot (principal)
CPT/HCPCS: 73630

== ENCOUNTER 2021-07-11 08:01 | Day surgery (SDC) | payer OTHER, SELFPAY ==
[2021-07-11] VITALS (8 sets, daily range): BP systolic 106–140; BP diastolic 61–74; PULSE 55–70; RESP 16–18; TEMP 35.9–36.6; O2SAT 95–99; BMI 30.4
--- NOTE | 2021-07-11 00:20 | PCM.HP.BLA ---
History and Physical Date of Admission: 07/11/21 HISTORY OF PRESENT ILLNESS 60 year old man presents with a soft tissue mass left superior shoulder that has increased in size over the last several months. There is some mild discomfort when he bumps it. He denies any problems with range of motion of his left upper extremity. He denies any recent infection. He denies fever. He denies trauma. He presents at this time for further evaluation and treatment. PAST MEDICAL HISTORY Anemia Compression fracture of L1 vertebra Compression fracture of L3 vertebra Former smoker Low serum parathyroid hormone (PTH) Mass of skin of left shoulder Osteoporosis Stage 3 chronic kidney disease PAST SURGICAL HISTORY History of back surgery History of kyphoplasty ALLERGIES No Known Allergies MEDICATIONS lisinopril polysaccharide iron complex pantoprazole cholecalciferol (vitamin D3)(1,000 unit) melatonin denosumab FAMILY HISTORY Sister - Breast cancer Mother - Bladder cancer Grandmother - Colon cancer SOCIAL HISTORY Smoking Status: Former smoker alcohol intake: current substance use type: does not use REVIEW OF SYSTEMS General - Denies fever, fatigue, and weight loss. Eyes - Denies cataracts and glaucoma. ENT - Denies nasal congestion and sore throat. Endocrine - Denies excessive thirst and urination. Skin - Denies suspicious lesions and skin cancer. Has an enlarging soft tissue mass left superior shoulder. Musculoskeletal - Has joint pain. Denies joint stiffness, weakness of muscles and joints, back pain, and arthritis. Neuro - Denies headaches. Cardiovascular - Denies chest pain, fatigue, and shortness of breath with exertion. Psych - Denies anxiety and depression. Respiratory - Denies chronic cough and shortness of breath. Patient is a former smoker. Gastrointestinal - Denies nausea, vomiting, diarrhea, and constipation. Hematologic - Denies abnormal bruising and bleeding. Genitourinary - Denies hematuria and urinary frequency. PHYSICAL EXAMINATION General - Alert and Oriented HEENT - PERRL. EOMI. Neck - Supple and nontender. No cervical adenopathy. Lungs - Clear to auscultation. Heart - Regular rate and rhythm. Abdomen - Soft and nondistended. Extremities - FROM. No axillary adenopathy. Radial pulses are palpable. No sensory deficits. On the left superior shoulder is a large soft tissue mass. Measures 9 cm. The mass is mobile. No evidence of infection. No ulceration. The mass is nontender unless it is bumped. Neuro - CN II-XII grossly intact. Psych - Normal mood and affect. ASSESSMENT 1. 9 cm soft tissue mass left superior shoulder. 2. Former smoker. PLAN Recommend excision of this soft tissue mass left superior shoulder and send it to Pathology for analysis to rule out carcinoma. The mass is clinically consistent with a lipoma. Other options include a large ganglion cyst. Depending on the size of the pocket after excision, a drain may be placed to minimize seroma formation. Also will use Amee absorbable hemostat to help minimize seroma as well. Postoperatively the sutures will be removed in 7-10 days and the drain will be removed in 7-10 days. If a ganglion cyst is present, will dissect the stalk down to the shoulder joint and any bony spurs will be excised to minimize recurrence. Surgery can be done on an outpatient basis under local anesthesia and IV sedation. Patient was informed of the risks and complications of the procedure including alternatives to surgery. These were discussed with the patient personally. Patient voices understanding and wishes to proceed. Some of the risks and complications were included in a form from the [place] [employer]. We discussed the current risks associated with COVID-19. While it is understood that there is a community spread of COVID-19, the risk of too COVID-19 while at [facility] [place] ([facility]) is very low; however, the risk cannot be completely mitigated because of the community spread of the disease. We discussed in detail the risk of exposure to and/or potential harm posed by the COVID-19 virus with having a surgery/procedure at this time versus the risk of delaying the surgery/procedure. It is not possible to know either the risk of delaying the surgery or procedure or chance of getting an infection with perfect accuracy, but a joint decision was made to proceed at this time with the scheduled surgery/procedure as indicated on the consent form. Patient was notified that we will need to comply with any screening or testing [facility] wishes to perform or that surgery may be delayed for any positive results. Procedure Criteria Procedure Type: Elective COVID Risk Discussion: The surgeon/proceduralist and patient have discussed in detail the risk of exposure to and/or potential harm posed by the COVID-19 virus with having a surgery/procedure at this time versus the risk of delaying the surgery/procedure. It is not possible to know either the risk of delaying the surgery or procedure or chance of getting an infection with perfect accuracy, but a joint decision was made between the patient and the surgeon/proceduralist to proceed at this time with the scheduled surgery/procedure as indicated on the consent form.
[2021-07-11] MEDS: Lactated Ringers 1,000 ML 15 ML IV (08:20)
--- NOTE | 2021-07-11 08:30 | TISS_PTH ---
PATIENT: MAKAYLA CYR LOC: [facility] [place] U#:[id number] AGE/SX: 60/M ROOM: RE07/11/[address]: Dr. Bhanu Ramos MD : 1960 BED: DIS: 07/11/2021 SPEC #: [id number] RECD: 07/11/21 10:40 STATUS: KADI ANOOP #: [id number] KIMMY: 07/11/21 08:[address]: Bhanu Ramos DEPT: SURGICAL PATHOLOGY RECD BY: Ross Jones ENTERED: 07/11/21 11:23 SP TYPE: Tissue Bx RADHA DR: Dr. Israel Reed MD Tissues: TISSUE SURGICALLY REMOVED Procedures: Surgery Specimen Level IV HEADER OPERATION: Excision soft tissue mass left shoulder PRE-OP DIAGNOSIS: 9 cm soft tissue mass left superior shoulder TISSUE SUBMITTED: 9 cm soft tissue mass left superior shoulder MICROSCOPIC DIAGNOSIS Soft tissue mass of left superior shoulder, excision: Mature adipose tissue consistent with lipoma. Skin with no pathologic change. AM:ifeoma 07/12/2021 MICROSCOPIC DESCRIPTION Slides are reviewed. GROSS DESCRIPTION Received in fixative is one container labeled with the patient's name and designated soft tissue mass left shoulder. The specimen consists of a lobulated fragment of yellow fatty tissue measuring 7 x 6 x 3 cm. Attached to this is an unremarkable fragment of skin measuring 7 x 1.3 cm. Serial sections reveal cut surfaces without areas of cyst formation, necrosis or hemorrhage. Kinesiology Professor sections are submitted in two cassettes. / AM:ifeoma 07/11/21 TC:1 CPT: 90667
[2021-07-11] MEDS: Lidocaine 1% /Epi 1:100 (20ml) 20 ML Vial (09:15)
[2021-07-11] MEDS: Mupirocin Ointment 22gm Tube 1 APPLIC (09:38)
--- NOTE | 2021-07-11 10:03 | OP.PCM_ITS ---
Problems Associated Problem List Diagnoses (1) Mass of skin of left shoulder: (2) Former smoker: Report of Operation Date of Procedure: 07/11/21 Pre-Operative Diagnosis: 1. 9 cm soft tissue mass left superior shoulder. 2. Former smoker. Post-Operative Diagnosis: Same. Surgery/Procedure Performed:: Excision 9 cm soft tissue mass left superior shoulder with 9 cm layered closure. Description of Surgical Findings:: 60 year old man presents with a soft tissue mass left superior shoulder that has increased in size over the last several months. There is some mild discomfort when he bumps it. He denies any problems with range of motion of his left upper extremity. He denies any recent infection. He denies fever. He denies trauma. Patient was informed of the risks and complications of the procedure including alternatives to surgery. These were discussed with the patient personally. Patient voices understanding and wishes to proceed. Some of the risks and complications were included in a form from the [employer]. I used Amee absorbable hemostat. Reference Number - [id number]. Lot Number - [id number]. Expiration - March 31, 2026. Surgeon: Bhanu Ramos certifed refrigeration operator: Garth Sauer Type of Anesthesia: Local MAC (xylocaine with epinephrine and IV sedation.) Specimen's removed: Soft tissue mass left superior shoulder to Pathology. Drains: Esteban. Estimated Blood Loss (mL): 50. Description of Procedure: Patient was taken to OR in supine position and was given IV sedation. The left shoulder area was prepped and draped in the usual fashion. SCD's were placed for DVT prophylaxis. Perioperative antibiotics were given intravenously. The left shoulder area was infiltrated with xylocaine and epinephrine. After waiting 5 minutes for the anesthetic to take effect, I made an oblique elliptical excision down into the subcutaneous tissue. Extending the dissection into the deeper subcutaneous tissue, the soft tissue was seen. The soft tissue mass extended to the muscular fascia but did not infiltrate the muscle. Some fibrous scar tissue was seen and was excised with the soft tissue mass. The soft tissue mass was well-encapsulated and was sent to Pathology for analysis to rule out carcinoma. Hemostasis was obtained with electrocautery. I felt a drain was necessary because of the size of the resultant cavity. I placed a size 15 Esteban drain into the wound and brought it out through a separate stab incision inferiorly. It was secured to the skin with 3-0 Nylon suture. I sprayed Amee absorbable hemostat into the wound to minimize seroma formation. I closed the wound in a layered fashion with 3-0 Monocryl interrupted sutures for the fascial layer. The deep dermis and subcuticular tissue was approximated with 3-0 Monocryl interrupted sutures. The skin was approximated with 4-0 Prolene simple interrupted and vertical mattress interrupted sutures. Antibiotic ointment was applied to the incision followed by 4x4 gauze and a compression birdie wrap. The length of the layered closure was 9 cm. Patient tolerated the procedure well and was sent to PACU in satisfactory condition. Patient will be sent home on antibiotics and pain medication. Patient will followup in a week for a wound check and for discussion of the pathology report. The drain will be removed in 7-10 days. I will remove the sutures in 2 weeks. Grafts/Implants Used: Amee Complications None. Admit VTE Documentation VTE Present on Admission: No VTE Mechan Device Prophylaxis: SCD's VTE Pharm Prophylaxis ordered?: No Addendum Addendum: Surgery Charges CPT - 99355 ICD-10 - R22.32, Z87.891
--- NOTE | 2021-07-11 10:26 | PCM.DC ---
Discharge Instructions Diet Discharge Diet: No restrictions Activity Discharge Activity: May Not Drive (when taking narcotics for pain. May shower after the drain is removed.), May Not Shower (until the drain is removed.) and - (no heavy lifting. keep left shoulder elevated.) May shower in (days): 7 (after the drain is removed.) May resume sexual activity in: No Restrictions Weight Bearing Status: Weight bearing as tolerated Lifting Restrictions: 20 lbs. Dressing / Incision Call your doctor if your incision/area has: Continuous Slow Oozing, Sudden Increased Bleeding, Increased Pain/ Swelling, Increased Redness, Foul Smelling Discharge and Swelling at the incision site Call your doctor if you observe: Fever of 101 or Higher, Coldness, Increased Pain, Shortness of breath, Fainting spells, Calf discomfort and Uncontrolled pain Suture Line Care: - Change Dressing in: 1 week (i will remove the operative dressing in the office.) Remove Dressing in: 1 week Cleanse incision/area with: Soap & Water (after which ) Drain: Suction (empty and record output daily.) Follow Up Care Please Follow Up With: Bhanu Ramos MD When: one week. call [phone] for appt time. Test Results: Test results from this visit will be discussed in further detail at your follow-up appointment, if applicable. Discharge Plan Admission Primary Reason for Your Visit: excision soft tissue mass left superior shoulder Attending Provider: Bhanu Ramos Primary Care Provider: Israel Reed Discharge Orders/Prescriptions Prescriptions: New cefadroxil 500 mg capsule 500 mg PO BID Qty: 20 RF: 1 L.acidoph,saliva-B.bif-S.therm [Acidophilus Probiotic Blend] 175 mg capsule 1 cap PO DAILY Qty: 10 RF: 0 oxycodone-acetaminophen [Percocet] 5-325 mg tablet 1 tab PO Q6H PRN (Reason: pain (scale score 7-10)) 7 Days Qty: 28 RF: 0 No Action lisinopril 10 MG tablet 20 mg PO DAILY RF: 0 polysaccharide iron complex 150 MG capsule 150 mg PO DAILYCM Qty: 90 RF: 3 pantoprazole 40 MG tablet 40 mg PO DAILY RF: 0 diphenhydramine HCl [Benadryl] 25 mg Capsule 25 mg PO QHS RF: 0 Prolia 60 mg/mL syringe 60 mg subcut [id number] Qty: 1 RF: 1 Referrals / Follow Up: Israel Reed MD [Primary Care Provider] - Disposition Disposition (needs filled in before D/C Order can be placed): Home, Self Care
--- NOTE | 2021-07-11 11:35 | SUR.PHASEII ---
patient ready for discharge; awaiting Dr. Ramos to sign paper prescription orders.
== END 2021-07-11 11:50 | disposition home or self-care (01) ==
LOC: SDC 08:03 → AC 08:15
PROVIDERS: PCP Family Medicine; Referring Provider Surgery; Visit Provider Surgery
PROC: (CPT 12034; principal; 2021-07-11 08:15)
DX: D17.22 Benign lipomatous neoplasm of skin and subcutaneous tissue of left arm (principal); M19.90 Unspecified osteoarthritis, unspecified site; K21.9 Gastro-esophageal reflux disease without esophagitis; I12.9 Hypertensive chronic kidney disease with stage 1 through stage 4 chronic kidney disease, or unspecified chronic kidney disease; N18.30 Chronic kidney disease, stage 3 unspecified; Z87.891 Personal history of nicotine dependence; Z79.899 Other long term (current) drug therapy
CPT/HCPCS: 01710; 12034; 24073; 88305; J7120

== ENCOUNTER 2021-09-04 14:12 | Outpatient (CLI) | payer BC, SELFPAY ==
--- NOTE | 2021-09-04 14:17 | CT_ITS ---
STUDY: LOW DOSE CT LUNG CANCER SCREENING REASON FOR EXAM: Male, 61 years old. Lung cancer screening -- former smoker; symptomatic; and gt; 30 pk yr hx RADIATION DOSAGE (If Supplied By Facility): CTDIvol = ( 4.02 ) mGy, DLP = ( 161.05 ) mGycm TECHNIQUE: No contrast was administered. Low dose technique was utilized (average mAS-38 and kVp 120). 1.25 mm axial source images with a slice interval of 1.25-mm were reconstructed in lung windows. 2.5 mm axial source images with a slice interval of 2.5-mm were reconstructed in lung windows. 5.0 mm axial source images with a slice interval of 5.0-mm were reconstructed in soft tissue windows. Nodule measured using lung windows on PACS and/or independent workstation with automated measurement of minimum and maximum diameter. Nodule measurement reported as average diameter rounded to the nearest whole number. Growth is defined as an increase ins size of greater than 1.5 mm. COMPARISON: Comparison is made with prior study dated 06/20/2020. NODULES: No suspicious nodules are seen. Emphysema: Hyperinflation. Emphysematous changes. Stable linear scarring is seen in the lung apices more prominent on the left side. Stable minimal thickening of the right major fissure. Stable mild increased linear markings in the anterior medial aspect of the right middle lobe. Stable minimal linear scarring in the anterior aspect of the right lower lobe and lateral aspect of the right lower lobe. Endobronchial lesion: None Aorta: Mild degree of atherosclerotic plaque at the level of the aortic arch. Coronary arteries: Coronary artery calcification. Heart: Unremarkable Pulmonary artery: Unremarkable Mediastinal nodes: Small benign-appearing mediastinal lymph nodes. Other chest and abdominal findings: Osteopenia of the thoracic vertebrae with loss of height of a mid thoracic vertebrae. Prior vertebroplasty of an upper lumbar vertebrae. CT/Low Dose CT Lung Screening IMPRESSION: Lung-RADS category 2 - Continue annual screening with LDCT in 12 months. IMPORTANT NOTES FOR USE: ACR Lung-RADS Version 1.1 Assessment Categories Release Date: 2018 Category: Coded 0-4 bases on nodule(s) with highest degree of suspicion. Negative screen is defined as categories 1 and 2; a positive screen is defined as categories 3 and 4. Category 3 and 4A nodules that are unchanged on interval CT should be coded as category 2, and individuals returned to screening in 12 months. Category 4X: Category 3 or 4 nodules with additional imaging findings that increase the suspicion of lung cancer, such as spiculation, GGN that doubles in size in 1 year, enlarged lymph notes, etc. Category Modifiers: S (significant finding unrelated to lung cancer) Electronically Signed: Flavio Hatch MD at 14:44 EST ,
[2021-09-04 15:09] LABS: Protein, Urine (Random) < 6.0 mg/dL (<11.9)
[2021-09-04 15:11] LABS: Anion Gap 5 (5-15); BUN 17 mg/dL (7-18); BUN/Creat Ratio 11.1 RATIO (10-20); Calcium,Total 9.4 mg/dL (8.5-10.1); Chloride 105 mmol/L (98-107); Creatinine, Serum 1.53 mg/dL (0.70-1.30); EST Glomerular Filtration Rate 49 mL/min (>60); Est Glom Filt Rate - Afr Amer 60 mL/min (>60); Glucose 91 mg/dL (74-106); Potassium 4.1 mmol/L (3.5-5.1); Sodium Level 139 mmol/L (136-145)
== END 2021-09-04 23:59 | disposition short-term general hospital (02) ==
LOC: CT 14:15
PROVIDERS: Nurse Practitioner Adult Health; PCP Family Medicine; Referring Provider Nurse Practitioner Family; Visit Provider Nurse Practitioner Family
DX: N18.31 Chronic kidney disease, stage 3a (principal); Z12.2 Encounter for screening for malignant neoplasm of respiratory organs; Z87.891 Personal history of nicotine dependence
CPT/HCPCS: 36415; 71271; 80048; 82570; 84156

== ENCOUNTER 2021-09-14 13:24 | Outpatient (CLI) | payer BC, SELFPAY ==
[2021-09-14 13:46] VITALS: BP 117/64; PULSE 87; RESP 16; TEMP 35.6; O2SAT 95; BMI 29.9
[2021-09-14] MEDS: DENOSUMAB 60 MG/ML SC (13:47)
== END 2021-09-14 23:59 | disposition home or self-care (01) ==
LOC: MEDOUTP 13:24
PROVIDERS: PCP Family Medicine; Referring Provider Nurse Practitioner Family; Visit Provider Nurse Practitioner Family
DX: M81.0 Age-related osteoporosis without current pathological fracture (principal)
CPT/HCPCS: 96372; J0897

== ENCOUNTER 2021-10-01 13:25 | Outpatient (CLI) | payer BC, SELFPAY ==
[2021-10-01 15:17] LABS: Absolute Lymphocyte Count 1.41 X10^3/uL (0.83-4.51); Absolute Neutrophil Count 1.3 X10^3/uL (2.0-7.7); Basophil# 0.08 X10^3/uL; Basophil% 2.4 % (0-1); Eosinophil# 0.03 X10^3/uL; Eosinophils% 0.9 % (0-5); Hematocrit 35.7 % (40-54); Hemoglobin 11.9 g/dL (13.0-16.5); Lymphocyte # 1.41 X10^3/ul (0.83-4.51); Lymphocyte % 42.2 % (19-41); Mean Corp Hgb Conc 33.3 g/dL (32-36); Mean Corpuscular Hgb 28.6 pg (27.0-32.0); Mean Corpuscular Volume 85.8 fL (80-94); Monocyte# 0.48 X10^3/uL; Monocyte% 14.4 % (0-10); NRBC Flagged by Analyzer 0 % (0-5); Neutrophil # 1.27 X10^3/uL (2.7-7.7); Platelet Count 262 K/mm3 (150-450); RBC Distribution Width CV 14.3 % (11.6-14.6); RBC Distribution Width SD 44.5 fl (35.1-43.9); Red Blood Count 4.16 M/mm3 (4.6-6.2); White Blood Count 3.3 K/mm3 (4.4-11.0)
[2021-10-01 15:31] LABS: Uric Acid 8.8 mg/dL (3.5-7.2)
[2021-10-01 17:06] LABS: AST(SGOT) 24 U/L (15-37); Alanine Aminotransfer ALT/SGPT 34 U/L (16-61); Albumin, Serum 3.7 g/dL (3.2-5.0); Alkaline Phosphatase 83 U/L (45-117); Anion Gap 4 (5-15); BUN 20 mg/dL (7-18); BUN/Creat Ratio 14.7 RATIO (10-20); Calcium,Total 9.1 mg/dL (8.5-10.1); Chloride 108 mmol/L (98-107); Creatinine, Serum 1.36 mg/dL (0.70-1.30); EST Glomerular Filtration Rate 56 mL/min (>60); Est Glom Filt Rate - Afr Amer 68 mL/min (>60); Ferritin 368 ng/mL (26-388); Globulin 3.8 g/dL (2.2-4.2); Glucose 98 mg/dL (74-106); Iron 72 ug/dL (65-175); Iron Binding Capacity,Total 294 ug/dL (250-450); LDH 234 U/L (87-241); PERCENT IRON SATURATION 24.5 % (15.0-55.0); Potassium 3.9 mmol/L (3.5-5.1); Protein, Total 7.5 g/dL (6.4-8.2); Sodium Level 139 mmol/L (136-145)
[2021-10-01 17:07] LABS: Vitamin B12 480 pg/mL (211-911); Vitamin D,25 Hydroxy 34.3 ng/mL
== END 2021-10-01 23:59 | disposition home or self-care (01) ==
LOC: BIMLAB 13:25
PROVIDERS: Internal Medicine Medical Oncology; PCP Family Medicine; Visit Provider Internal Medicine Endocrinology, Diabetes & Metabolism
DX: R20.2 Paresthesia of skin (principal); E55.9 Vitamin D deficiency, unspecified; M19.90 Unspecified osteoarthritis, unspecified site; E61.1 Iron deficiency
CPT/HCPCS: 36415; 80053; 82306; 82607; 82728; 83540; 83550; 83615; 84550; 85025

== ENCOUNTER → 2022-02-25 | Outpatient (CLI) | payer BC, SELFPAY ==
[2022-02-25 12:18] LABS: Absolute Lymphocyte Count 0.88 X10^3/uL (0.83-4.51); Absolute Neutrophil Count 1.5 X10^3/uL (2.0-7.7); Basophil# 0.08 X10^3/uL; Basophil% 2.7 % (0-1); Eosinophil# 0.06 X10^3/uL; Hematocrit 33.3 % (40-54); Hemoglobin 10.5 g/dL (13.0-16.5); Lymphocyte # 0.88 X10^3/ul (0.83-4.51); Lymphocyte % 29.5 % (19-41); Mean Corp Hgb Conc 31.5 g/dL (32-36); Mean Corpuscular Hgb 27.8 pg (27.0-32.0); Mean Corpuscular Volume 88.1 fL (80-94); Mean Platelet Vol. 10.7 fl (6.2-12.0); Monocyte# 0.38 X10^3/uL; Monocyte% 12.8 % (0-10); NRBC Flagged by Analyzer 0 % (0-5); Neutrophil # 1.53 X10^3/uL (2.7-7.7); Neutrophil % 51.3 % (47-70); Platelet Count 206 K/mm3 (150-450); RBC Distribution Width CV 15.6 % (11.6-14.6); RBC Distribution Width SD 49.5 fl (35.1-43.9); Red Blood Count 3.78 M/mm3 (4.6-6.2)
[2022-02-25 12:29] LABS: Vitamin D,25 Hydroxy 52.4 ng/mL
[2022-02-25 12:32] LABS: Protein, Urine (Random) 12.2 mg/dL (<11.9); Protein:Creat Ratio 97 mg/g CRE (0-200)
[2022-02-25 12:35] LABS: PTHIN 56.8 pg/mL (18.4-80.1)
[2022-02-25 12:36] LABS: ALB/GLOB Ratio 1.1 RATIO (0.9-2.4); AST(SGOT) 15 U/L (15-37); Alanine Aminotransfer ALT/SGPT 24 U/L (16-61); Albumin, Serum 3.7 g/dL (3.2-5.0); Alkaline Phosphatase 70 U/L (45-117); Anion Gap 4 (5-15); BUN 16 mg/dL (7-18); BUN/Creat Ratio 10.5 RATIO (10-20); Calcium,Total 8.7 mg/dL (8.5-10.1); Chloride 107 mmol/L (98-107); Creatinine, Serum 1.52 mg/dL (0.70-1.30); EST Glomerular Filtration Rate 50 mL/min (>60); Est Glom Filt Rate - Afr Amer 60 mL/min (>60); Globulin 3.5 g/dL (2.2-4.2); Glucose 94 mg/dL (74-106); Phosphorus 2.1 mg/dL (2.5-4.9); Potassium 4.5 mmol/L (3.5-5.1); Protein, Total 7.2 g/dL (6.4-8.2); Sodium Level 137 mmol/L (136-145)
== END | disposition home or self-care (01) ==
LOC: BIMLAB 08:35
PROVIDERS: PCP Family Medicine; Referring Provider Internal Medicine Nephrology; Visit Provider Internal Medicine Nephrology
DX: N18.31 Chronic kidney disease, stage 3a (principal); E20.9 Hypoparathyroidism, unspecified; D64.9 Anemia, unspecified
CPT/HCPCS: 36415; 80053; 82306; 82570; 83970; 84100; 84156; 84550; 85025

== ENCOUNTER → 2022-03-15 | Outpatient (CLI) | payer BC, SELFPAY ==
[2022-03-15 14:03] VITALS: BP 107/63; PULSE 77; RESP 16; TEMP 36.3; O2SAT 97; BMI 26.3
[2022-03-15] MEDS: DENOSUMAB 60 MG/ML SC (14:05)
== END | disposition home or self-care (01) ==
LOC: MEDOUTP 13:53
PROVIDERS: PCP Family Medicine; Referring Provider Nurse Practitioner Family; Visit Provider Nurse Practitioner Family
DX: M81.0 Age-related osteoporosis without current pathological fracture (principal)
CPT/HCPCS: 96372; J0897

== ENCOUNTER → 2022-06-10 | Outpatient (CLI) | payer BC, SELFPAY ==
[2022-06-10 17:51] LABS: ALB/GLOB Ratio 1.2 RATIO (0.9-2.4); AST(SGOT) 22 U/L (15-37); Alanine Aminotransfer ALT/SGPT 36 U/L (16-61); Albumin, Serum 3.9 g/dL (3.2-5.0); Alkaline Phosphatase 71 U/L (45-117); Anion Gap 7 (5-15); BUN 17 mg/dL (7-18); BUN/Creat Ratio 13.6 RATIO (10-20); Calcium,Total 8.3 mg/dL (8.5-10.1); Chloride 104 mmol/L (98-107); Creatinine, Serum 1.25 mg/dL (0.70-1.30); EST Glomerular Filtration Rate 62 mL/min (>60); Est Glom Filt Rate - Afr Amer 75 mL/min (>60); Globulin 3.2 g/dL (2.2-4.2); Glucose 87 mg/dL (74-106); Magnesium 2.3 mg/dL (1.6-2.6); Potassium 3.9 mmol/L (3.5-5.1); Protein, Total 7.1 g/dL (6.4-8.2); Sodium Level 138 mmol/L (136-145)
[2022-06-10 17:59] LABS: Hematocrit 35.8 % (40-54); Hemoglobin 11.6 g/dL (13.0-16.5); Mean Corp Hgb Conc 32.4 g/dL (32-36); Mean Corpuscular Hgb 29.8 pg (27.0-32.0); Mean Platelet Vol. 10.5 fl (6.2-12.0); POSITIVE COUNT YES; POSITIVE MORPHOLOGY YES; Platelet Count 199 K/mm3 (150-450); RBC Distribution Width CV 14.8 % (11.6-14.6); RBC Distribution Width SD 48.7 fl (35.1-43.9); Red Blood Count 3.89 M/mm3 (4.6-6.2); White Blood Count 2.9 K/mm3 (4.4-11.0)
[2022-06-10 18:06] LABS: Vitamin D,25 Hydroxy 42.9 ng/mL
[2022-06-10 19:06] LABS: Differential Indicated MANUAL DIFF
[2022-06-10 19:32] LABS: Basophil 2 % (0-1); Eosinophil 2 % (0-5); Lymphocyte 34 % (19-41); Monocyte 6 % (0-10); Neutrophil-Band 1 % (0-5); Neutrophil-Segmented 55 % (47-70); Total Cells Counted 100 (MANUAL DIFF)
[2022-06-10 19:33] LABS: Absolute Neutrophil Count 4.6 X10^3/uL (2.0-7.7); Neutrophil # 1.64 X10^3/uL (2.7-7.7)
[2022-06-10 19:34] LABS: Platelet Estimate ADEQUATE (ADEQ); Red Cell Morphology NORM C+C NORMAL (NORM C&C)
[2022-06-11 08:12] LABS: PTHIN 58.9 pg/mL (18.4-80.1)
[2022-06-11 13:38] LABS: Pathologist Review Reviewed
== END | disposition home or self-care (01) ==
LOC: MFPLAB 14:12
PROVIDERS: PCP Family Medicine; Referring Provider Family Medicine; Visit Provider Family Medicine
DX: N18.31 Chronic kidney disease, stage 3a (principal); J44.9 Chronic obstructive pulmonary disease, unspecified; D47.2 Monoclonal gammopathy; M81.0 Age-related osteoporosis without current pathological fracture
CPT/HCPCS: 36415; 80053; 82306; 83735; 83970; 85025

== ENCOUNTER → 2022-09-13 | Outpatient (CLI) | payer BC, OTHER, SELFPAY ==
[2022-09-13 14:00] VITALS: BP 119/75; PULSE 90; RESP 16; TEMP 36.4; O2SAT 99
[2022-09-13] MEDS: DENOSUMAB 60 MG/ML SC (14:05)
== END | disposition home or self-care (01) ==
LOC: MEDOUTP 13:56
PROVIDERS: PCP Family Medicine; Referring Provider Nurse Practitioner Family; Visit Provider Nurse Practitioner Family
DX: M81.0 Age-related osteoporosis without current pathological fracture (principal)
CPT/HCPCS: 96372; J0897

== ENCOUNTER → 2022-09-26 | Outpatient (CLI) | payer BC, SELFPAY ==
--- NOTE | 2022-09-26 15:56 | BD_ITS ---
STUDY: DUAL ENERGY X-RAY ABSORPTIOMETRY / DXA REASON FOR EXAM: Male, 62 years old. M810 TECHNIQUE: Bone Mineral Density (BMD) measurements of lumbar spine and bilateral hips were obtained. COMPARISON: Comparison is made with prior study dated 06/14/2020. FINDINGS: Lumbar Spine (L1-L4): g/cm2 (0.980) / T-score (-1.3) / Z-score (-0.6) Findings are suggestive of osteopenia with a low fracture risk. Left Femur Total: g/cm2 (0.873) / T-score (-1.1) / Z-score (-0.6) Left Femoral Neck: g/cm2 (0.751) / T-score (-1.3) / Z-score (-0.3) Right Femur Total: g/cm2 (0.900) / T-score (-0.9) / Z-score (-0.4) Right Femoral Neck: g/cm2 (0.797) / T-score (-1.0) / Z-score (0.0) The T-Scores on the most recent prior examination were: Lumbar Spine (L1-L4): There has been improvement of bone density since the previous examination. Left Femur Total: which represents an improvement of 4.1%. Right Femur Total: which represents an improvement of 4.4%. BD/Dexa Bone Density Study IMPRESSION: The patient is considered osteopenic as outlined below according to World [place] Organization (WHO) criteria with a low fracture risk. There has been improvement of bone density since the previous examination. Reference Information: The T-score is the number of standard deviations above or below the standard which is normal for young adults at their peak bone mineral density. The World Health Organization (WHO) interprets the T-scores as follows: Above -1 Normal bone density Between -1 and -2.5 Osteopenia Equal to / or below -2.5 Osteoporosis As a practical clinical guideline, osteopenia may be graded as follows: Mild -1 through -1.5 Moderate -1.6 through -2.0 Severe -2.1 through -2.4 The Z-score is the number of standard deviations above or below age-matched controls. A Z-score of less than -1.5 would be considered abnormal. References: 1. NIH Osteoporosis and Related Bone Diseases www osteo.org 2. International Society for Clinical Densitometry www iscd.org 3. National Osteoporosis Foundation www nof.org Electronically Signed: Flavio Hatch MD at 15:24 EST ,
== END | disposition home or self-care (01) ==
PROVIDERS: PCP Family Medicine; Referring Provider Family Medicine; Visit Provider Family Medicine
DX: M81.0 Age-related osteoporosis without current pathological fracture (principal)
CPT/HCPCS: 77080

== ENCOUNTER → 2022-10-08 | Outpatient (CLI) | payer BC, SELFPAY ==
--- NOTE | 2022-10-08 14:08 | CT_ITS ---
STUDY: LOW DOSE CT LUNG CANCER SCREENING REASON FOR EXAM: Male, 62 years old. Lung cancer screening -- and gt;20 pk yr hx;asymptomatic; former smoker RADIATION DOSAGE (If Supplied By Facility): CTDIvol = ( 3.02 ) mGy, DLP = ( 115.51 ) mGycm TECHNIQUE: No contrast was administered. Low dose technique was utilized (average mAS-38 and kVp 120). 1.25 mm axial source images with a slice interval of 1.25-mm were reconstructed in lung windows. 2.5 mm axial source images with a slice interval of 2.5-mm were reconstructed in lung windows. 5.0 mm axial source images with a slice interval of 5.0-mm were reconstructed in soft tissue windows. COMPARISON: September 04, 2021 NODULES: There are no new pulmonary nodules. Emphysema: There is stable emphysema. There is stable minimal bilateral atelectasis and/or scarring. Endobronchial lesion: None identified. Aorta: There are peripheral calcifications of the thoracic aorta. CORONARY ARTERIES: There are coronary artery calcifications Pulmonary artery: Within normal limits. Mediastinal nodes: Within normal limits. Other chest and abdominal findings: The bones remain diffusely demineralized. There are stable endplate compression deformities there is evidence of a prior L1 kyphoplasty. CT/Low Dose CT Lung Screening IMPRESSION: Lung-RADS category 2 - Continue annual screening with LDCT in 12 months. IMPORTANT NOTES FOR USE: ACR Lung-RADS Version 1.1 Assessment Categories Release Date: 2018 Category: Coded 0-4 bases on nodule(s) with highest degree of suspicion. Negative screen is defined as categories 1 and 2; a positive screen is defined as categories 3 and 4. Category 3 and 4A nodules that are unchanged on interval CT should be coded as category 2, and individuals returned to screening in 12 months. Category 4X: Category 3 or 4 nodules with additional imaging findings that increase the suspicion of lung cancer, such as spiculation, GGN that doubles in size in 1 year, enlarged lymph notes, etc. Category Modifiers: S (significant finding unrelated to lung cancer) Electronically Signed: Yumi Rodgers MD at 14:53 EST Reading Location ID and State: [facility] / [place] Tel , Service support ,
== END | disposition home or self-care (01) ==
LOC: CT 14:06
PROVIDERS: PCP Family Medicine; Referring Provider Nurse Practitioner Family; Visit Provider Nurse Practitioner Family
DX: Z87.891 Personal history of nicotine dependence (principal); Z12.2 Encounter for screening for malignant neoplasm of respiratory organs
CPT/HCPCS: 71271

== ENCOUNTER → 2023-01-09 | Outpatient (CLI) | payer BC, SELFPAY ==
[2023-01-09 15:32] LABS: Absolute Lymphocyte Count 1.16 X10^3/uL (0.83-4.51); Absolute Neutrophil Count 1.3 X10^3/uL (2.0-7.7); Basophil# 0.08 X10^3/uL; Basophil% 2.8 % (0-1); Eosinophil# 0.03 X10^3/uL; Hematocrit 35.1 % (40-54); Hemoglobin 10.9 g/dL (13.0-16.5); Lymphocyte # 1.16 X10^3/ul (0.83-4.51); Lymphocyte % 40.3 % (19-41); Mean Corp Hgb Conc 31.1 g/dL (32-36); Mean Corpuscular Hgb 28.5 pg (27.0-32.0); Mean Corpuscular Volume 91.9 fL (80-94); Mean Platelet Vol. 10.6 fl (6.2-12.0); Monocyte# 0.33 X10^3/uL; Monocyte% 11.5 % (0-10); NRBC Flagged by Analyzer 0.7 % (0-5); Neutrophil # 1.25 X10^3/uL (2.7-7.7); Neutrophil % 43.4 % (47-70); Platelet Count 197 K/mm3 (150-450); RBC Distribution Width CV 14.9 % (11.6-14.6); RBC Distribution Width SD 48.9 fl (35.1-43.9); Red Blood Count 3.82 M/mm3 (4.6-6.2); White Blood Count 2.9 K/mm3 (4.4-11.0)
[2023-01-09 15:46] LABS: Vitamin D,25 Hydroxy 43.9 ng/mL
[2023-01-09 16:07] LABS: ALB/GLOB Ratio 1.2 RATIO (0.9-2.4); AST(SGOT) 18 U/L (15-37); Alanine Aminotransfer ALT/SGPT 26 U/L (16-61); Albumin, Serum 3.8 g/dL (3.2-5.0); Alkaline Phosphatase 71 U/L (45-117); Anion Gap 6 (5-15); BUN 20 mg/dL (7-18); BUN/Creat Ratio 17.7 RATIO (10-20); Calcium,Total 8.7 mg/dL (8.5-10.1); Chloride 107 mmol/L (98-107); Creatinine, Serum 1.13 mg/dL (0.70-1.30); EST Glomerular Filtration Rate 70 mL/min (>60); Est Glom Filt Rate - Afr Amer 84 mL/min (>60); Globulin 3.3 g/dL (2.2-4.2); Glucose 89 mg/dL (74-106); Protein, Total 7.1 g/dL (6.4-8.2); Sodium Level 139 mmol/L (136-145)
[2023-01-09 16:12] LABS: Microalbumin,Random Urine < 5.0 mg/L (NO RANGE EST.)
[2023-01-10 08:15] LABS: PTHIN 41.2 pg/mL (18.4-80.1)
== END | disposition home or self-care (01) ==
LOC: MFPLAB 12:26
PROVIDERS: PCP Family Medicine; Visit Provider Family Medicine
DX: M81.0 Age-related osteoporosis without current pathological fracture (principal); N18.31 Chronic kidney disease, stage 3a; I12.9 Hypertensive chronic kidney disease with stage 1 through stage 4 chronic kidney disease, or unspecified chronic kidney disease
CPT/HCPCS: 36415; 80053; 82043; 82306; 82570; 83970; 85025

== ENCOUNTER → 2023-01-14 | Outpatient (CLI) | payer BC, SELFPAY ==
--- NOTE | 2023-01-14 13:33 | CT_ITS ---
STUDY: CT THORACIC SPINE WITHOUT CONTRAST REASON FOR EXAM: Male, 62 years old. Persistent back pain.? New fracture. History of compression fractures. RADIATION DOSAGE (If Supplied By Facility): CTDIvol = ( 23.78 ) mGy, DLP = ( 999.76 ) mGycm TECHNIQUE: The patient was scanned in a multi detector CT scanner. High resolution imaging was performed. Images were obtained from mid C4 to L3 superior endplate. Sagittal and coronal images were reconstructed. Individualized dose optimization techniques were used for this CT. COMPARISON: MRI of the thoracic spine without contrast 04/27/2020. FINDINGS: Degenerative narrowing of the C6-C7 and C7-T1 disc space levels. Mild endplate sclerosis at C7-T1 disc space level. Normal central canal. Moderate stenosis of the right C7-T1 intervertebral neural foramen. Normal central canal of the lower cervical spine. Normal kyphosis of the thoracic spine. There is no substantial scoliosis. Moderate compression fracture of the T7 vertebral body with sclerosis of the vertebral marrow. This is a new finding. Mild central compression fracture of the lower T8 vertebral body is old, previously recent. Mild anterior wedge compression fracture of the upper T9 vertebral body is a new finding but does not appear recent. Moderate old central compression fracture of the upper T10 vertebral body, previously mild. Mild old central compression fracture of the upper T11 vertebral body, previously recent. Moderate old central compression fracture of the upper T12 vertebral body previously minimal and recent. Minimal old central compression fracture of the upper L1 vertebral body is a new finding. Old L2 compression fracture contains PMMA casts from kyphoplasty. Increased central disc space heights at T7-T8, T8-T9, T9-T10, T10-T11, T11-T12, T12-L1, L1-L2 and L2-L3 disc space levels due to compression fractures. Normal remaining thoracic disc space heights. Normal central canal and bilateral intervertebral neural foramina. Normal facet joints. The soft tissue structures are unremarkable. CT/Spine Thoracic without Contras IMPRESSION: 1. Moderate compression fracture with sclerosis of the upper T7 vertebral body. It appears old and was not present on 04/27/2020. 2. Mild old central compression fracture of the lower T8 vertebral body. This was previously recent. 3. Mild old anterior wedge compression fracture of the upper T9 vertebral body. This was previously recent on 04/27/2020. 4. Moderate old central compression fracture of the upper T10 vertebral body, previously mild. 5. Mild old central compression fracture of the upper T11 vertebral body, previously recent. 6. Moderate old central compression fracture of the upper T12 vertebral body, previously recent and minimal. 7. Minimal old central compression fracture of the upper L1 vertebral body is a new finding. The fracture does not appear acute or recent. 8. Old L2 compression fracture contains PMMA casts from kyphoplasty or vertebroplasty. 9. Normal central canal and bilateral intervertebral neural foramina. Electronically Signed: Vinicio Horne MD at 12:02 EDT ,
== END | disposition home or self-care (01) ==
LOC: CT 13:32
PROVIDERS: PCP Family Medicine; Referring Provider Family Medicine; Visit Provider Family Medicine
DX: M54.6 Pain in thoracic spine (principal); M81.0 Age-related osteoporosis without current pathological fracture; Z87.81 Personal history of (healed) traumatic fracture
CPT/HCPCS: 72128

== ENCOUNTER → 2023-02-28 | Outpatient (CLI) | payer BC, SELFPAY ==
[2023-02-28 12:39] LABS: Anion Gap 4 (5-15); BUN 13 mg/dL (7-18); BUN/Creat Ratio 9.8 RATIO (10-20); Calcium,Total 8.6 mg/dL (8.5-10.1); Chloride 103 mmol/L (98-107); Creatinine, Serum 1.32 mg/dL (0.70-1.30); EST Glomerular Filtration Rate 58 mL/min (>60); Est Glom Filt Rate - Afr Amer 70 mL/min (>60); Glucose 100 mg/dL (74-106); Sodium Level 135 mmol/L (136-145)
[2023-02-28 12:40] LABS: Protein, Urine (Random) < 6.0 mg/dL (<11.9)
== END | disposition home or self-care (01) ==
LOC: BIMLAB 08:49
PROVIDERS: PCP Family Medicine; Referring Provider Internal Medicine Nephrology; Visit Provider Internal Medicine Nephrology
DX: N18.31 Chronic kidney disease, stage 3a (principal)
CPT/HCPCS: 36415; 80048; 82570; 84156

== ENCOUNTER 2023-03-14 12:51 | Outpatient (CLI) | payer BC, SELFPAY ==
[2023-03-14 12:57] VITALS: BP 114/64; PULSE 74; RESP 16; TEMP 36.4
[2023-03-14] MEDS: DENOSUMAB 60 MG/ML SC (13:01)
== END 2023-03-14 12:52 | disposition home or self-care (01) ==
LOC: MEDOUTP 12:51
PROVIDERS: PCP Family Medicine; Referring Provider Nurse Practitioner Family; Visit Provider Nurse Practitioner Family
DX: M81.0 Age-related osteoporosis without current pathological fracture (principal)
CPT/HCPCS: 96372; J0897

== ENCOUNTER → 2023-10-14 | Outpatient (CLI) | payer BC, SELFPAY ==
--- NOTE | 2023-10-14 16:05 | CT_ITS ---
STUDY: LOW DOSE CT LUNG CANCER SCREENING REASON FOR EXAM: Male, 63 years old. FORMER SMOKER. Patient smoked 1 pack per day for 40 years. RADIATION DOSAGE (If Supplied By Facility): CTDIvol = ( 3.02 ) mGy, DLP = ( 120.03 ) mGycm TECHNIQUE: No contrast was administered. Low dose technique was utilized (average mAS-38 and kVp 120). 1.25 mm axial source images with a slice interval of 1.25-mm were reconstructed in lung windows. 2.5 mm axial source images with a slice interval of 2.5-mm were reconstructed in lung windows. 5.0 mm axial source images with a slice interval of 5.0-mm were reconstructed in soft tissue windows. COMPARISON: Comparison is made with prior study of October 08, 2022. NODULES: No suspicious nodules are seen. Emphysema: Hyperinflation. Emphysematous changes. Scarring at the lung apices. Endobronchial lesion: There is a 1.1 cm x 0.6 cm nodular density along the wall of the trachea on the right side as seen on axial image #88 and coronal image #136. Aorta: Atherosclerotic plaque formation of the aortic arch. CORONARY ARTERIES: Coronary artery calcification is seen. Heart: Unremarkable Pulmonary artery: Unremarkable Mediastinal nodes: Unremarkable Other chest and abdominal findings: CT/Low Dose CT Lung Screening IMPRESSION: Lung-RADS category 2 - Continue annual screening with LDCT in 12 months. 1.1 cm x 0.6 cm nodular density along the wall of the trachea on the right side as described. Endoscopic correlation recommended. IMPORTANT NOTES FOR USE: ACR Lung-RADS Version 1.1 Assessment Categories Release Date: 2018 Category: Coded 0-4 bases on nodule(s) with highest degree of suspicion. Negative screen is defined as categories 1 and 2; a positive screen is defined as categories 3 and 4. Category 3 and 4A nodules that are unchanged on interval CT should be coded as category 2, and individuals returned to screening in 12 months. Category 4X: Category 3 or 4 nodules with additional imaging findings that increase the suspicion of lung cancer, such as spiculation, GGN that doubles in size in 1 year, enlarged lymph notes, etc. Category Modifiers: S (significant finding unrelated to lung cancer) Electronically Signed: Flavio Hatch MD at 11:25 EDT ,
--- OUTSIDE RECORDS SUMMARY | 2023-10-15 02:58 | XMS RPT_ITS | CCD ---
Author Name Unknown Address [address] [place] [address] Organization [facility] Care Team Providers Care Hosiery Knitter Name Role Phone EMELY ROCK Unavailable Unavailable Results Test Name Value Interpretation Reference Range Facil ity Encounters Encounter Date Encounter Type Care Provider Facility Start: 03-27-2017 End: 03-28-2017 Ambulatory EMELY ROCK [facility] Summary Purpose Family History No Family History Records Found Advance Directives No Advanced Directives Records Found Additional Source Comments (unrecognized sect ion and content) No Status Records Found INFORMATION SOURCE (unrecogn ized section and content) FOR RECORDS PERTAINING TO PATIENTS WHO ARE OR HAVE BEEN ENROLLED IN A CHEMICAL DEPENDENCY/SUBSTANCEABUSE PROGRAM, SOME INFORMATION MAY BE OMITTED. This clinical summary was aggregated from multiple sources. Caution should be exercised in using it in the provision of clinical care. This summary normalizes information from multiple sources, and as a consequence, information in this document may materially change the coding, format and clinical context of patient data. In addition, data may be omitted in some cases. CLINICAL DECISIONS SHOULD BE BASED ON THE PRIMARY CLINICAL RECORDS. [employer] provides no warranty or guarantee of the accuracy or completeness of information in this document.
== END | disposition home or self-care (01) ==
LOC: CT 16:27
PROVIDERS: PCP Family Medicine; Referring Provider Nurse Practitioner Family; Visit Provider Nurse Practitioner Family
DX: Z87.891 Personal history of nicotine dependence (principal)
CPT/HCPCS: 71271

== ENCOUNTER → 2023-10-22 | Outpatient (CLI) | payer BC, SELFPAY ==
[2023-10-22 12:31] LABS: Hematocrit 38.4 % (40-54); Hemoglobin 12.4 g/dL (13.0-16.5); Mean Corp Hgb Conc 32.3 g/dL (32-36); Mean Corpuscular Hgb 29.5 pg (27.0-32.0); Mean Corpuscular Volume 91.4 fL (80-94); Mean Platelet Vol. 10.3 fl (6.2-12.0); Platelet Count 172 K/mm3 (150-450); RBC Distribution Width CV 14.9 % (11.6-14.6); RBC Distribution Width SD 47.5 fl (35.1-43.9); White Blood Count 2.9 K/mm3 (4.4-11.0)
[2023-10-22 12:45] LABS: Partial Thromboplast Time 28.1 Seconds (24.1-36.2); Prothrombin Time (Protime)PT. 13.2 SECONDS (11.7-14.9)
== END | disposition home or self-care (01) ==
LOC: LAB 11:59
PROVIDERS: PCP Family Medicine; Visit Provider Internal Medicine Critical Care Medicine
DX: R91.8 Other nonspecific abnormal finding of lung field (principal)
CPT/HCPCS: 36415; 85027; 85610; 85730

== ENCOUNTER 2023-10-27 12:46 | Day surgery (SDC) | payer BC, SELFPAY ==
[2023-10-27] VITALS (7 sets, daily range): BP systolic 85–100; BP diastolic 55–72; PULSE 68–75; RESP 16–18; TEMP 36.1–36.6; O2SAT 95–98; BMI 27.1
[2023-10-27] MEDS: Lactated Ringers 1,000 ML 15 ML IV (13:05)
[2023-10-27] MEDS: Lidocaine Jelly 2% 20 ML Syringe (URO-JET) 1 APPLIC (13:53)
[2023-10-27] MEDS: Lidocaine 2% (5ml sdv) 5 ML VIAL.MPF ×2 (14:01)
--- NOTE | 2023-10-27 14:16 | OP.BRONCH_ITS ---
Patient Name: Ajay Wesley Procedure Date: 10/27/2023 1:28 PM Date of : 1960 Age: 63 Procedure: Bronchoscopy Indications: Suspicious trachea lesion Providers: Stevan Doss MD Referring MD: Stevan Doss MD Medicines: See the Anesthesia note for documentation of the administered medications Complications: No immediate complications Procedure: Pre-Anesthesia Assessment: - A History and Physical has been performed. Patient meds and allergies have been reviewed. The risks and benefits of the procedure and the sedation options and risks were discussed with the patient. All questions were answered and informed consent was obtained. Patient identification and proposed procedure were verified prior to the procedure by the physician in the procedure room. Mental Status Examination: alert and oriented. Airway Examination: normal oropharyngeal airway. Respiratory Examination: clear to auscultation. CV Examination: RRR, no murmurs, no S3 or S4. ASA Grade Assessment: II - A patient with mild systemic disease. After reviewing the risks and benefits, the patient was deemed in satisfactory condition to undergo the procedure. The anesthesia plan was to use monitored anesthesia care (MAC). Immediately prior to administration of medications, the patient was re-assessed for adequacy to receive sedatives. The heart rate, respiratory rate, oxygen saturations, blood pressure, adequacy of pulmonary ventilation, and response to care were monitored throughout the procedure. The physical status of the patient was re-assessed after the procedure. After I obtained informed consent, the scope was passed under direct vision. Throughout the procedure, the patient's blood pressure, pulse, and oxygen saturations were monitored continuously. The bronchoscope was introduced through the right nostril and advanced to the tracheobronchial tree of both lungs. The procedure was accomplished without difficulty. The patient tolerated the procedure well. Findings: The nasopharynx/oropharynx appears normal. The larynx appears normal. The vocal cords appear normal. The subglottic space is normal. The trachea is of normal caliber. The yue is sharp. The tracheobronchial tree was examined to at least the first subsegmental level. Bronchial mucosa and anatomy are normal; there are no endobronchial lesions, and no secretions. There were some areas of adherence thick white mucus to the bronchial wall. Patient also had some findings consistent of macroscopic bronchiectasis, but no endobronchial lesions or hemoptysis noted. Impression: - Suspicious trachea lesion - The airway examination was normal. - No specimens collected. - The airway examination was normal. Recommendation: - The patient will be observed post-procedure, until all discharge criteria are met. - The patient was advised to call or return to the clinic if there are signs or symptoms suggesting a complication/adverse reaction from the procedure. Procedure Code(s): --- Professional --- 78033, Bronchoscopy, rigid or flexible, including fluoroscopic guidance, when performed; diagnostic, with cell washing, when performed (separate procedure) Diagnosis Code(s): --- Professional --- R93.89, Abnormal findings on diagnostic imaging of other specified body structures CPT copyright 2021 [employer]. All rights reserved. The codes documented in this report are preliminary and upon neuro ophthalmologist review may be revised to meet current compliance requirements. MD Stevan Vides MD 10/27/2023 2:15:22 PM This report has been signed electronically. Number of Addenda: 0 Note Initiated On: 10/27/2023 1:28 PM
--- NOTE | 2023-10-29 13:01 | HP.PCM_ITS ---
History and Physical Date of Procedure: 10/27/23 Patient seen and examined independently. No changes noted from below. All questions answered. Assessment and Plan Assessment and Plan (1) Abnormal CT lung screening: Status: Acute (2) Tobacco use: Status: Chronic Orders: Orders Prothrombin Time w/INR Today R91.8 - Other nonspecific abnormal finding of lung field Partial Thromboplast Time Today R91.8 - Other nonspecific abnormal finding of lung field CBC-Complete Blood Cnt No Diff Today R91.8 - Other nonspecific abnormal finding of lung field Bronchoscopy Today R91.8 - Other nonspecific abnormal finding of lung field Pulmonary Function Test (Comp) Today Z72.0 - Tobacco use Plan Unclear etiology at this time. Squamous cell carcinoma or retained secretions would be the most likely. After review the risks, benefits and alternatives, patient has agreed to proceed with bronchoscopy for airway examination over repeat CT scan. Patient will have labs drawn in preparation. Patient also has some emphysematous changes noted on CT scan of the chest, so a pulmonary function test will be obtained for quantification clarification of lung function. No new medications will be ordered until further information is available. Bronchoscopy is tentatively scheduled for 10/27/2023 at 2 PM. Patient does not have significant mediastinal lymphadenopathy or paratracheal issues to require EBUS approach Obtain complete PFT. Obtain bronchoscopy Plan Details Follow Up: 3 Months (CSM) HPI Discuss LDCT Details: Patient is a 63-year-old male, currently under care of Dr. Reed, who presents for evaluation secondary to an abnormal CT scan. Patient reports he had his normal annual low-dose CT scan completed secondary to a 35+ pack year smoking history. Patient states he has carried a diagnosis of COPD, but does not use any respiratory medications at this time. Patient states he has never had a pulmonary function test. Patient does have a cough intermitt ently, but this is not always productive. Patient states he has had some issues with compression fractures in the past, but this was been associated with his parathyroid. Patient is currently working with endocrine. Patient states he was of his usual health when he had a CT scan. Patient states he has not had any hemoptysis, fever, chills or unintentional weight loss. No lower extreme edema has been reported. Patient is unaware of any previous findings in his trachea. Patient is not reporting any dysphagia. Patient is no longer smoking. Review of systems otherwise negative from a constitutional, HEENT, respiratory, cardiovascular, GI, genitourinary, musculoskeletal, skin, neurologic, psychiatric and hematologic system unless stated above. Documentation reviewed 5 pages of documentation were reviewed prior to the office visit. Patient reportedly had presented to the low-dose CT clinic and was found to have an abnormal CT. Patient did have hyperinflation with emphysematous changes, but there was a 1.1 x 0.6 cm nodular density along the right lateral side of the trachea. There is concern the patient may require bronchoscopy Intake Vital Signs 09/26/2408:30 10/21/2404:58 Height 5 ft 11 in 5 ft 11 in Weight: 90.718 kg BMI 27.8 BP 106/65 Blood Pressure Location Lt brachial Position Sitting Respiration 18 Pulse 76 Pulse Source Monitor Temp 36.2 C L Temperature Source Temporal Artery Pulse Oximetry (%) 94 Oxygen Delivery Method room air Intake Visit Reasons: Discuss LDCT Medic Technician Required: No DME Vendor: n/a Accompanied by: Is patient in pain?: No Allergies No Known Allergies Allergy (Verified 10/22/23 10:52) Medications lisinopril 10 mg tablet 20 mg PO DAILY 06/05/20 [History Confirmed 10/22/23] cholecalciferol (vitamin D3) 25 mcg (1,000 unit) tablet 25 mcg PO DAILY 09/04/21 [History Confirmed 10/22/23] ferrous sulfate 325 mg (65 mg iron) tablet (Feosol) 325 mg PO DAILY 10/01/21 [History Confirmed 10/22/23] allopurinol 100 mg tablet 100 mg PO DAILY 09/05/22 [History Confirmed 10/22/23] famotidine 20 mg tablet 20 mg PO BID 09/05/22 [History Confirmed 10/22/23] denosumab 60 mg/mL subcutaneous syringe (Prolia) 60 mg subcut [id number] #1 mL 09/11/23 [Rx Confirmed 10/22/23] ON LICENSE OF [facility] Medical History Alcohol use Arthritis Back pain Compression fracture of L1 vertebra Compression fracture of L3 vertebra Encounter for screening for malignant neoplasm of lung in former smoker who quit in past 15 years with 30 pack year history or greater Former smoker Gastric reflux History of stress test History of tobacco use Hypertension Low iron Low serum parathyroid hormone (PTH) Mass of skin of left shoulder Osteoporosis Osteoporosis Other acute postprocedural pain Paresthesia Stage 3 chronic kidney disease Surgical History History of back surgery History of kyphoplasty Family History Sister Breast cancerMother Bladder cancerGrandmother Colon cancer Social History Smoking Status: Former smoker (quit 08/04/2015) quit date: 08/04/16 pack-years: 40 Tobacco: How many years used: 40 alcohol intake: current substance use type: does not use additional social history: Does Not Take Aspirin Does Not Take Ibuprofen Exam Const Constitutional: Positive conversant, cooperative, in no acute respiratory distress, healthy appearing, well developed, well nourished and good hygiene; Negative wearing supplemental oxygen or ill appearing Head Head: Yes normocephalic, Yes atraumatic and No cyanosis of lips/distal nose Eyes Eye: Positive clear conjunctiva; Negative nystagmus, scleral abnormality or cataract present Ears Ear: Positive hard of hearing and external ears normal Nose Nose: Yes external nose normal, No nasal polyp and Yes septum normal Mouth Mouth: Positive oral mucosae normal, no lesions and good dentition; Negative oral thrush present or post nasal drip Mallampati Score: II: Mallampati Score Neck Neck: Positive normal visual inspection, full ROM and trachea midline; Negative lymphadenopathy or JVD Chest Wall Chest: Positive symmetric chest movement and increased A/P diameter; Negative crepitus or tenderness Resp lung sounds: Positive diminished lung sounds and prolonged expiratory time; Negative wheezes, wheeze present on forced exhalation, rhonchi, rales, dullness or use of accessory muscles Cardio Cardiac: Positive regular rate, regular rhythm, S1 normal and S2 normal; Negative murmur, rub or gallop GI GI: Positive normal to inspection and normal bowel sounds; Negative distended, ascites or epigastric tenderness Musc Musculoskeletal: Positive steady gait; Negative using an assistive device for ambulation, kyphosis or scoliosis Skin Pulmonary Skin Exam: Positive intact; Negative lesion, rash, ulcers or erythema Pulses Pulse: Yes radial pulses present Extremities Extremities: Yes capillary refill normal, No clubbing, No cyanosis and No edema Neuro Neurologic: Yes no focal neuro deficits, Yes conversant, Yes cooperative, Yes normal cognition, Yes normal coordination, Yes normal concentration and Yes understands questions Lymph Lymphatic: No lymphadenopathy Psych Appearance: Positive grossly normal Mental Status: Positive mental status grossly normal Mood: Positive congruent mood Affect: Positive normal affect 10/27/23 [id number] <Electronically signed by Stevan Doss MD> Cosigner Signature (if applicable):
== END 2023-10-27 14:59 | disposition home or self-care (01) ==
LOC: EN 12:49 → AC 12:50
PROVIDERS: PCP Family Medicine; Referring Provider Internal Medicine Critical Care Medicine; Visit Provider Internal Medicine Critical Care Medicine
PROC: 0BJ08ZZ Inspection of Tracheobronchial Tree, Via Natural or Artificial Opening Endoscopic (ICD-10-PCS; CPT 31622; principal; 2023-10-27 13:45)
DX: J39.8 Other specified diseases of upper respiratory tract (principal); N18.30 Chronic kidney disease, stage 3 unspecified; R91.8 Other nonspecific abnormal finding of lung field; I12.9 Hypertensive chronic kidney disease with stage 1 through stage 4 chronic kidney disease, or unspecified chronic kidney disease; Z87.891 Personal history of nicotine dependence; Z79.899 Other long term (current) drug therapy; K21.9 Gastro-esophageal reflux disease without esophagitis
CPT/HCPCS: 31622; J7120; J2405

== ENCOUNTER → 2024-02-20 | Outpatient (CLI) | payer BC, SELFPAY ==
[2024-02-20 10:36] LABS: Protein, Urine (Random) 13.9 mg/dL (<11.9); Protein:Creat Ratio 83 mg/g CRE (0-200)
[2024-02-20 10:56] LABS: Anion Gap 6 (5-15); BUN 20 mg/dL (7-18); Calcium,Total 8.7 mg/dL (8.5-10.1); Chloride 103 mmol/L (98-107); Creatinine, Serum 1.43 mg/dL (0.70-1.30); EST Glomerular Filtration Rate 53 mL/min (>60); Est Glom Filt Rate - Afr Amer 64 mL/min (>60); Glucose 101 mg/dL (74-106); PSA,Total - Annual Screen 0.46 ng/mL (0.00-4.00); Potassium 3.7 mmol/L (3.5-5.1); Sodium Level 136 mmol/L (136-145)
== END | disposition home or self-care (01) ==
PROVIDERS: PCP Family Medicine; Referring Provider Family Medicine; Visit Provider Family Medicine
DX: Z12.5 Encounter for screening for malignant neoplasm of prostate (principal); N18.31 Chronic kidney disease, stage 3a
CPT/HCPCS: 36415; 80048; 82570; 84153; 84156; G0103

== ENCOUNTER → 2024-10-26 | Outpatient (CLI) | payer BC, SELFPAY ==
--- NOTE | 2024-10-26 13:48 | CT_ITS ---
EXAM: CT chest without IV contrast. CLINICAL HISTORY: Lung cancer screening. COMPARISON: Several CT chest without contrast, most recent dated October 14, 2023. TECHNIQUE: Low-dose CT of the chest was performed without intravenous contrast. Multiplanar reformats were obtained afterwards. FINDINGS: The trachea and central bronchial tree are patent. There is no pleural or pericardial effusion. Patient has undergone L1 vertebral body augmentation. There are no acute osseous abnormality is present. Moderate emphysematous disease is noted throughout the lungs. There are dependent changes at the lung bases. Tiny subpleural nodule is seen within the left upper lobe (image 144/285). Increasing infiltrate is noted within the left upper lobe anteriorly best seen on image 146/285 and image 97/135. This appears more prominent when compared to prior examination. Close follow-up is suggested. Previously noted endobronchial lesion to the right of the trachea is not identified on today's study. There is probable tiny tracheal debris present in the upper trachea posteriorly for example on image 51/285. The heart is normal in size. CT/Low Dose CT Lung Screening IMPRESSION: Increasing airspace opacity within the left upper lobe anteriorly. This may peterson ggest areas of increased scarring. Recommend short-term follow-up in 3-6 months to assess stability. If this is persistent or increases, PET imaging may be obtained. Reading Location: [id number]
== END | disposition home or self-care (01) ==
LOC: CT 13:48
PROVIDERS: PCP Registered Nurse; Referring Provider Nurse Practitioner Family; Visit Provider Nurse Practitioner Family
DX: Z12.2 Encounter for screening for malignant neoplasm of respiratory organs (principal); Z87.891 Personal history of nicotine dependence
CPT/HCPCS: 71271